=== PATIENT | male | born 1950 | race Caucasian/White ===

== ENCOUNTER 2022-11-11 12:31 | Outpatient (CLI) | payer MEDICARE, OTHER, SELFPAY ==
--- NOTE | ~2022-11-11 | PE_ITS ---
EXAMINATION: PET_PETPSMAST_PT DATE: 11/11/2022 14:48 INDICATION: Prostate cancer TECHNIQUE: 9.652 mCi of pipflufolastat F-18 (18-F-DCFPyL) was administered i.v. Low dose computed to mography (CT) images were acquired from the base of the brain to the base of the brain to the proxima l thighs for attenuation correction and anatomic localization. Positron emission tomography (PET) lamin ges were acquired in the same distribution beginning 93 minutes after injection. Images including fus ed PET/CT images were reconstructed in axial, coronal, and sagittal planes. Automated exposure contro l technique was employed. The dose-length product was 624.62mGy-cm. COMPARISON: None FINDINGS: Head/neck: Typical pattern of symmetric physiologic increased activity in the lacrimal, parotid and submandibula r glands as well as along the mucosa of the oropharynx, nasopharynx and hypopharynx. No pathologicall y enlarged cervical lymphadenopathy or suspicious foci of increased uptake in the visualized head or neck. Chest: Mild bibasilar atelectasis. No pneumonia, pulmonary edema or pleural effusion. Heart size is normal. Atherosclerotic coronary artery calcification. No pericardial effusion. Calcified left hilar and medi astinal lymph nodes consistent with old granulomatous disease. No pathologically enlarged or PSMA av id thoracic lymphadenopathy. Abdomen/pelvis/proximal thighs: Physiologic renal accumulation and excretion of activity in the kidneys, bladder and along portions o f ureters. Normal degree and slightly heterogenous pattern of increased uptake throughout the liver a nd spleen without radiologic correlate or dominant PSMA avid lesion. The gallbladder, pancreas and bi lateral adrenal glands are normal. Scattered uptake throughout the bowels with typical marked duodena l and proximal jejunal predominance and without radiologic correlate, also likely physiologic. Small focus of prominent asymmetric uptake at the left side of the prostate with maximal SUV of 16.1 likely representing the primary site of a reported known prostate cancer. No other abnormal foci of increas ed uptake or pathologically enlarged lymphadenopathy in the abdomen, pelvis or proximal thighs. Musculoskeletal: No abnormal increased uptake associated with a 7 mm relatively densely sclerotic lesion at the right posterior iliac spine most likely representing a small bone island. A couple tiny foci of mild activi ty without evident corresponding sclerotic bone lesions located in the region of several of the neura l foramina in the lumbar spine and sacrum likely associated with the dorsal root ganglia. No other tom spicious lytic, blastic or some avid bone lesions. IMPRESSION: 1. Prominent asymmetric increased uptake in the left prostate consistent with progressive primary pro state cancer. No other lesions suspicious for metastatic disease. Reviewed, dictated and finalized at location B. ATTACHER IMPRESSION: 1. Prominent asymmetric increased uptake in the left prostate consistent with p rogressive primary prostate cancer. No other lesions suspicious for metastatic disease.
== END 2022-11-11 12:32 | disposition home or self-care (01) ==
PROVIDERS: Visit Provider Urology
DX: C61 Malignant neoplasm of prostate (principal)
CPT/HCPCS: 78815; A9595

== ENCOUNTER 2022-12-20 13:51 | Outpatient (CLI) | payer MEDICARE, OTHER, SELFPAY ==
--- NOTE | ~2022-12-20 | XR_ITS ---
EXAMINATION: XR chest 2V DATE: 12/20/2022 15:34 INDICATION: Malignant neoplasm of prostate. TECHNIQUE: Frontal and lateral views of the chest were obtained. COMPARISON: PET/CT 11/11/2022 FINDINGS: Calcified left lung nodules and calcified left hilar lymph nodes are consistent with old gr anulomatous disease. No pleural effusion or pneumothorax. The heart size is normal. There are changes of anterior fusion procedure in cervical spine. IMPRESSION: 1. No acute cardiopulmonary disease. Reviewed, dictated and finalized at location A. DESTRUCTIVE EVALUATION SPECIALIST
--- NOTE | 2022-12-20 14:58 | ECG_ITS ---
Measurements Intervals [place] Rate: 68 P: 41 NE: 119 QRS: 23 QRSD: 102 T: 39 QT: 361 QTc: 384 Interpretive Statements SINUS RHYTHM WITH SHORT NE INTERVAL BASELINE ARTIFACT- I, II, III, AVR, AVL, AVF, V1-V6 BORDERLINE ECG NO PREVIOUS ECG AVAILABLE FOR COMPARISON Electronically Signed On 12-20-2022 16:34:16 JUNIOR TECHNICAL WRITER by Navneet Goldman D.O.
[2022-12-20 15:24] LABS: Basophils Percent Auto 0.4 % (0.2-1.2); Eosinophils Absolute Auto 0.1 K/mm3 (0-0.3); Hematocrit 48.6 % (42.0-52.0); Hemoglobin 16.4 g/dL (14.0-18.0); Immature Granulocyte Absolute 0.01 K/mm3 (0.00-0.031); Immature Granulocyte Percent A 0.1 % (0-0.5); Lymphocytes Absolute Auto 1.24 K/mm3 (0.9-3.2); Mean Corpuscular HGB Conc 33.7 g/dl (32-36); Mean Corpuscular Hemoglobin 31.7 pg (26-34); Mean Corpuscular Volume 93.8 fl (80-100); Mean Platelet Volume 8.5 fl (7.4-10.4); Monocytes Absolute Auto 0.7 K/mm3 (0.1-0.6); Monocytes Percent Auto 9.9 % (2.6-8.5); Neutrophils Absolute Auto 4.9 K/mm3 (1.3-6.7); Neutrophils Percent Auto 70.6 % (45.5-73.1); Platelet Count Result 228 k/mm3 (150-375); Red Blood Count 5.18 M/mm3 (4.6-6.20); Red Cell Distribution Width 12.4 % (11.5-14.5); White Blood Count 6.9 K/mm3 (4.5-10.0)
[2022-12-20 15:24] LABS: Appearance Urine Clear (Clear); Bilirubin Urine Negative (Negative); Blood Urine Negative (Negative); Color Urine Yellow (Yellow); Glucose Urine UA Negative (Negative); Ketones Urine Negative (Negative); Leukocyte Esterase Ur Negative LEU/UL (Negative); Nitrate Urine Negative (Negative); Protein Urine Negative (Negative); Urobilinogen Urine 0.2 mg/dL (<2.0)
[2022-12-20 15:35] LABS: Alanine Aminotransferase 30 U/L (6-50); Albumin Level 4.6 g/dL (3.5-5.1); Alkaline Phosphatase 68 U/L (38-126); Anion Gap 5 mmol/L (8-16); Aspartate Amino Transferase 32 U/L (17-59); Bilirubin,Total 0.5 mg/dL (0.2-1.3); Blood Urea Nitrogen 12 mg/dL (9-20); Calcium 9.2 mg/dL (8.4-10.2); Carbon Dioxide 33 mmol/L (22-30); Chloride 103 mmol/L (98-107); Estimated Glomerular Filt Rate > 60; Glucose 105 mg/dL (65-110); INR 1.1; Potassium 4.6 mmol/L (3.4-5.0); Prothrombin Time 13.5 Seconds (11.1-14.7); Sodium 141 mmol/L (137-145)
[2022-12-20 15:36] LABS: Partial Thromboplastin Time 27.9 SECONDS (22.3-36.8)
[2022-12-20 15:39] LABS: Add Urine Microscopic? NO
== END 2022-12-20 13:52 | disposition home or self-care (01) ==
PROVIDERS: Visit Provider Urology
DX: C61 Malignant neoplasm of prostate (principal); Z01.818 Encounter for other preprocedural examination; R94.31 Abnormal electrocardiogram [ECG] [EKG]
CPT/HCPCS: 36415; 71046; 80053; 81003; 85025; 85610; 85730; 86850; 86900; 86901; 93005

== ENCOUNTER 2022-12-29 00:53 | Day surgery (SDC) | payer MEDICARE, OTHER, SELFPAY ==
[2022-12-20 14:14] VITALS: BP 124/74; PULSE 74; RESP 16; TEMP 36.5; O2SAT 93; BMI 26.2
--- NOTE | 2022-12-20 14:31 | PC.NURSE ---
Addendum entered by Hayley Sullivan RN 12/20/22 15:04: PT RELAYS GOOD UNDERSTANDING OF BOWEL PREP DAY BEFORE SURGERY AND OF LOVENOX ADMINISTRATION. Original Note: Report to the Outpatient Waiting Room, entrance under the green pavilion located off [facility], at time __6:00AM on date ___12/29/22____. Planned Procedure Time: __7:30AM . Time changes happen often and if your time is changed the preop area will call you the afternoon before. - You and your visitor will be asked to self-screen and do not enter if you have any COVID symptoms. - Only one visitor is requested with a max of two and NO children visitors are allowed at this time. - The patient visitor may be requested to leave or wait in car when not with patient due to distancing restrictions. - A mask is optional within the hospital at this time. Patients may have clear liquids (water, carbonated beverages, clear teas, apple juice) until 3 hours prior to surgery with a maximum of 20 ounces. - No food from midnight until time of surgery Take the following medications with a SIP of water the morning of surgery: ___DIAZEPAM, METOPROLOL, TRAMADOL DO NOT STOP ANY OF YOUR OTHER PRESCRIPTION MEDICATIONS PRIOR TO SURGERY ?EXCEPT THE FOLLOWING Medications to discontinue per physician ___HOLD PLAVIX 4 DAYS PRE-OP- LAST DOSE 12/24/22---START LOVENOX INJECTIONS X2/DAY Monday12/25/22. HOLD ALL VITAMINS/SUPPLEMENTS 7 DAYS PRE-OP- LAST DOSE 12/22/22. Please no make-up, nail sri lankan, hairspray, perfume, deodorant, or body powder the day of surgery. No jewelry (including any body piercings) or valuables the day of surgery, leave them at home. Please take a shower or bath the night before, or the morning of, surgery with an antibacterial soap. Wear comfortable, loose fitting clothing. Children are encouraged to wear pajamas. - Jewelry must be removed prior to entering the operating room. Rings and piercings that are not removed may be cut off. - The hospital will not accept responsibility for valuables. - Please leave all valuables, including medications, at home the day of surgery. If you are going home after surgery, a licensed armor reconnaissance vehicle driver must drive you home. - NO public transportation without another adult if you receive anesthesia. - We recommend that an adult stay with you for 24 hours following discharge. - We also recommend that you do not drive, make important decision, drink alcoholic beverages, or take any drugs that were not prescribed by your health care provider for at least 24 hours after your discharge time. Follow any additional instructions given to you from your surgeon. If you or anyone in your household have experienced Covid symptoms in the past week, please notify your surgeon or the nurse liaison at the phone number below for possible testing. Telephone instructions given to ___PATIENT and asked if any additional questions and then verbalized understanding. Patient advised to call surgeon office or pre surgery nurse liaison [phone] if any additional questions.
--- NOTE | 2022-12-21 07:28 | PM.IMHP ---
H&P: HPI History of Present Illness Date/Time: 12/21/22 07:28 Chief Complaint: High-risk prostate cancer Narrative: Pleasant 72-year-old gentleman recently referred with a PSA of 9.8. Prostate ultrasound and biopsy demonstrated 12 of 12 cores with Tiff grade 2 3 4 and 5 adenocarcinoma. Staging PSMA PET scan revealed uptake only in the prostate without evidence of metastatic disease. High-risk CaP with unremarkable PSMA. ?Patient is not sexually active. ?He is resolved to proceeding with a robotic prostatectomy with bilateral pelvic lymph the vasectomy. ?He is aware of the risk including, but not limited to, adverse cardiopulmonary events, erectile dysfunciton and urinary incontinence. ?He has had a prior FL with stopping Plavix so will need to be on a Lovenox bridge. Patient is also aware of the potential need for adjuvant therapy postoperatively. Review of Systems Cardiovascular: Cardiovascular: Denies chest pain, Denies lightheadedness, Denies palpitations and Denies dyspnea Respiratory: Respiratory: Denies dyspnea Gastrointestinal: Gastrointestinal: Denies diarrhea, Denies nausea and Denies vomiting Genitourinary: Genitourinary: Denies hematuria and Denies dysuria Endocrine: Endocrine: Denies palpitations PMF Social History Social History Smoking status: Never smoker Alcohol intake: never Substance use: never Living arrangements: with family Additional living arrangements comments: Spiritual care concerns: No Meds Home Medications and Allergies Home Medications Medication Instructions Recorded Confirmed Type cetirizine 10 mg capsule (Zyrtec) 10 mg PO DAILY 12/20/22 12/20/22 History clopidogrel 75 mg tablet (Plavix) 75 mg PO DAILY 12/20/22 12/20/22 History diazepam 2 mg tablet 2 mg PO TID 12/20/22 12/20/22 History dutasteride 0.5 mg capsule 0.5 mg PO HS 12/20/22 12/20/22 History enoxaparin 80 mg/0.8 mL 80 mg subcut BID 12/20/22 12/20/22 History subcutaneous syringe famotidine 20 mg tablet 20 mg PO BID 12/20/22 12/20/22 History geriatric multivitamin-min 1 tablet PO DAILY 12/20/22 12/20/22 History lactobacillus comb no.10 20 20,000 mmu cells PO DAILY 12/20/22 12/20/22 History billion cell capsule (Probiotic) metoprolol succinate 25 mg 25 mg PO QAM 12/20/22 12/20/22 History tablet,extended release 24 hr multivitamin 1 tablet PO DAILY 12/20/22 12/20/22 History rosuvastatin 20 mg tablet 20 mg PO DAILY 12/20/22 12/20/22 History tramadol 50 mg tablet 50 mg PO BID 12/20/22 12/20/22 History Allergies Allergy/AdvReac Type Severity Reaction Status Date / Time No Known Allergies Allergy Verified 12/20/22 14:02 Vital Signs Vital Signs - 24 hr 12/20/22 14:14 Temperature 97.7 F Pulse Rate 74 Respiratory Rate 16 Blood Pressure 124/74 Pulse Oximetry 93 Oxygen Delivery Room Air Exam Const: General: no acute distress Resp: Effort & Inspection: normal respiratory effort GI: Inspection: non-distended GI Palp: No abdominal tenderness and No Guarding due to palpation present (GI) Auscultation: normal bowel sounds Assessment and Plan Assessment and plan (1) Prostate cancer: Code(s): C61 - Malignant neoplasm of prostate Status: Acute Assessment and Plan: Robotic assisted laparoscopic prostatectomy with bilateral pelvic lymphadenectomy
[2022-12-29] VITALS (12 sets, daily range): BP systolic 102–128; BP diastolic 52–63; PULSE 80–99; RESP 14–20; TEMP 36.2–37; O2SAT 94–100
--- NOTE | 2022-12-29 06:40 | WPDHPUPDATE1 ---
History and Physical Update Update Date/Time: 12/29/22 06:40 History and Physical has been reviewed, including an updated exam of the patient. There are NO changes in the patient's condition. Risks, benefits, and alternatives have been discussed and questions answered. Patient agrees to proceed with procedure.
--- NOTE | 2022-12-29 06:41 | WPDHPUPDATE1 ---
History and Physical Update Update Date/Time: 12/29/22 06:41 History and Physical has been reviewed, including an updated exam of the patient. There are NO changes in the patient's condition. Risks, benefits, and alternatives have been discussed and questions answered. Patient agrees to proceed with procedure.
[2022-12-29] MEDS: LACTATED RINGERS 1,000 ML 30 ML IV CONT ×2 (06:49→10:33)
--- NOTE | 2022-12-29 07:12 | WPDANESEPPF ---
Anes - Initial Pre Proc Eval Procedure: Operation Date: 12/29/22 07:30 Proposed Procedures p Robotic Assisted Laparoscopic Prostatectomy with Bilateral Pelvic Lymph Node Dissection - Linus Maria MD Date/Time: 12/29/22 07:12 Surgeon: Linus Maria MD Pre Op Diagnosis: prostate CA Patient Data Age: 72 Gender: M Height: 1.7 m Weight: 74 kg Last Vital Signs Temp 36.5 C 12/20/22 14:14 Pulse 74 12/20/22 14:14 Resp 16 12/20/22 14:14 BP 124/74 12/20/22 14:14 Pulse Ox 93 12/20/22 14:14 O2 Del Method Room Air 12/20/22 14:14 Allergies Allergy/AdvReac Type Severity Reaction Status Date / Time No Known Allergies Allergy Verified 12/29/22 07:04 Home Medications Medication Instructions Recorded Confirmed Type cetirizine 10 mg capsule (Zyrtec) 10 mg PO DAILY 12/20/22 12/20/22 History clopidogrel 75 mg tablet (Plavix) 75 mg PO DAILY 12/20/22 12/20/22 History diazepam 2 mg tablet 2 mg PO TID 12/20/22 12/20/22 History dutasteride 0.5 mg capsule 0.5 mg PO HS 12/20/22 12/20/22 History enoxaparin 80 mg/0.8 mL 80 mg subcut BID 12/20/22 12/20/22 History subcutaneous syringe famotidine 20 mg tablet 20 mg PO BID 12/20/22 12/20/22 History geriatric multivitamin-min 1 tablet PO DAILY 12/20/22 12/20/22 History lactobacillus comb no.10 20 20,000 mmu cells PO DAILY 12/20/22 12/20/22 History billion cell capsule (Probiotic) metoprolol succinate 25 mg 25 mg PO QAM 12/20/22 12/20/22 History tablet,extended release 24 hr multivitamin 1 tablet PO DAILY 12/20/22 12/20/22 History rosuvastatin 20 mg tablet 20 mg PO DAILY 12/20/22 12/20/22 History tramadol 50 mg tablet 50 mg PO BID 12/20/22 12/20/22 History Patient hx anesthesia problems: other (hx of difficult intubation) Family hx anesthesia problems: none Results Review: All pre-operative results and documents have been reviewed as part of the pre-operative evaluation. [facility] Past Medical History Medical History (Updated 12/29/22 @ 07:13 by Maulik Pena MD) Myocardial infarct Surgical History Surgical History (Updated 12/29/22 @ 07:13 by Maulik Pena MD) History of coronary artery stent placement Social History Social History Smoking status: Never smoker Alcohol intake: never Substance use: never Living arrangements: with family Additional living arrangements comments: Spiritual care concerns: No Anes - Eval Final PreProcedure Day of Procedure 12/29/22 07:12 Patient weight: overweight Heart: regular rate and rhythm Lungs: clear to auscultation Airway: Mallampati scale class III and special considerations poor opening, poor extension and retrognathia Last oral intake: >/= 8 hours ASA classification: III Emergent: no Anesthetic plan: proceed Anesthesia type and monitoring: general ETT and standard monitoring Results Review: All pre-operative results and documents have been reviewed as part of the pre-operative evaluation. Informed Consent: The patient's anesthetic plan and its attendant risks including oral injury, difficult intubation, AL, and benefits were discussed with the patient/family/POA. Questions were solicited and answers provided to the satisfaction of the patient/family/POA.
--- NOTE | 2022-12-29 10:37 | W.PM.PROC2 ---
Procedure Note - Detailed Date of Procedure 12/29/22 Pre-op Diagnosis Prostate CA Post-op Diagnosis Same Procedure Performed Robotic assisted laparoscopic radical prostatectomy with bilateral pelvic lymphadenectomy Surgeon Linus Maria MD Anesthesia General Findings No gross evidence of extra-prostatic carcinoma. Description of Procedure The patient was brought to the operative suite, where he was prepped and draped in routine sterile fashion while in a dorsal lithotomy, deep Trendelenburg position. A supraumbilical 10 mm trocar was placed after insufflation of the abdomen with a Veress needle. Three robotic ports were then placed under direct vision. Two of these were placed in the right lower quadrant - 10 cm and 20 cm lateral to, and in line with, the umbilicus. A third robotic trocar was placed 10 cm to the left of the umbilicus, and 20 cm to the left of the umbilicus, a 12 mm standard laparoscopic trocar was placed to be used as an grants and contracts assistant port. Lastly, a 5 mm trocar was placed in the left upper quadrant midway between the umbilicus and the left robotic trocar. I capped insufflation pressure to 10mmHg. Attention was then turned to the prostatectomy. I opted for a posterior approach in this patient. An incision was made in the parietal peritoneum along the posterior bladder/posterior prostate about 2 cm above the reflection of the peritoneum over the anterior rectum. The seminal vesicles and vas deferens were immediately identified. Dissection is undertaken in a fashion so as to avoid electrocautery as much as possible, particularly near the tips of the seminal vesicles. Dissection was also carried out in the midline so as to avoid any encounters with the ureters. The vas deferens and the seminal vesicles were dissected in their entirety to the base of the prostate. The plane anterior to Denoviller's fascia, anterior to the rectum and posterior to the prostate was then developed. I then dropped the bladder by incising the anterior parietal peritoneum just lateral to the median umbilical ligaments bilaterally. The bladder was dropped from the anterior abdominal and pelvic wall. The endopelvic fascia was identified and incised bilaterally, allowing for dissection of the posterior-lateral aspect of the prostate. The puboprostatic ligaments were transected near their origin from the posterior pubic ramus. This posterior lateral dissection of the prostate is also undertaken in a fashion so as to avoid electrocautery as much as possible. The dorsal vein of the penis is then secured with an 0 -Vicryl ligature. Attention is then turned to the bladder neck. The anterior bladder neck is incised at the vesico-prostatic junction. The previously placed urethral catheter was drawn through the urethrotomy. A very small bladder neck was maintained throughout the remainder of this dissection. The posterior bladder neck was incised in a fashion so as to avoid any injury to the ureteral orifices. Again, the small aperture of the bladder neck was maintained. The previously dissected vas deferens and the seminal vesicles were brought through the posterior bladder neck incision. The lateral prostatic pedicles were then carefully dissected from the lateral aspect of the prostate bilaterally. The prostatic pedicles were secured with Weck clips and transected. The neurovascular bundles were carefully dissected from the posterior-lateral aspect of the prostate. The dorsal vein of the penis was incised with electrocautery. Using cold scissors, the urethra was incised. After withdrawing the previously placed urethral catheter, the posterior urethra was sharply incised, as was the rectalurethralis muscle. Attention was then turned to an extended bilateral pelvic lymphadenectomy. The limits of this dissection were similar bilaterally. Specifically, the limits were the bifurcation of the common iliac vein proximally, the inguinal ligament distally, the obtur
[2022-12-29] MEDS: fentaNYL CITRATE INJ (*CRX) 100 MCG/2 ML VIAL 25 MCG IV PUSH (12:23)
[2022-12-29] MEDS: FAMOTIDINE 20 MG TABLET PO (17:16)
[2022-12-29] MEDS: HYOSCYAMINE SULFATE 0.125 MG TABLET SUBLINGUAL ×2 (17:18→20:07)
[2022-12-29] MEDS: ENOXAPARIN 80 MG/0.8 ML SYRINGE SUB-Q (20:01)
[2022-12-29] MEDS: KETOROLAC 15 MG/ML VIAL (*BKC) IV PUSH (20:07)
[2022-12-30 00:44] VITALS: BP 105/51; PULSE 96; RESP 18; TEMP 36.4; O2SAT 94
[2022-12-30 04:00] VITALS: BP 131/85; PULSE 58; RESP 18; TEMP 36.1; O2SAT 100
[2022-12-30] MEDS: HYOSCYAMINE SULFATE 0.125 MG TABLET SUBLINGUAL (04:22)
[2022-12-30] MEDS: KETOROLAC 15 MG/ML VIAL (*BKC) IV PUSH (04:54)
[2022-12-30 07:01] LABS: Hematocrit 37.1 % (42.0-52.0); Hemoglobin 12.3 g/dL (14.0-18.0)
[2022-12-30 07:19] LABS: Anion Gap 4 mmol/L (8-16); Blood Urea Nitrogen 14 mg/dL (9-20); Calcium 8.4 mg/dL (8.4-10.2); Carbon Dioxide 28 mmol/L (22-30); Chloride 101 mmol/L (98-107); Estimated CRCL calculation 55 ml/min; Estimated Glomerular Filt Rate > 60; Glucose 130 mg/dL (65-110); Potassium 3.9 mmol/L (3.4-5.0); Sodium 133 mmol/L (137-145)
--- NOTE | 2022-12-30 07:40 | WPDUROPN2 ---
Progress Note: A&P Assessment and Plan (1) Prostate cancer: Code(s): C61 - Malignant neoplasm of prostate Status: Acute Assessment and Plan: Doing well POD #1 Increase diet/ambulation Possibly home later today Subjective Subjective Date/Time Seen: 12/30/22 07:40 c/o urge to urinate and need to have a bowel movement. Tolerating diet Review of Systems Cardiovascular: Cardiovascular: Denies chest pain, Denies lightheadedness, Denies palpitations and Denies dyspnea Respiratory: Respiratory: Denies dyspnea Gastrointestinal: Gastrointestinal: Reports abdominal pain (mild), Denies diarrhea, Denies nausea and Denies vomiting Genitourinary: Genitourinary: Denies hematuria and Denies dysuria Endocrine: Endocrine: Denies palpitations Exam Const: General: no acute distress Resp: Effort & Inspection: normal respiratory effort GI: Inspection: non-distended and other (incisions clean and dry) GI Palp: No abdominal tenderness and No Guarding due to palpation present (GI) Auscultation: normal bowel sounds Urinary Catheter: Urinary Catheter: patent and draining and urine clear Objective Data Vital Signs Vital Signs: Vital Signs - 24 hr 12/29/22 10:33 12/29/22 10:45 12/29/22 11:00 Temperature 97.2 F L Pulse Rate 92 80 81 Respiratory Rate 17 20 15 Blood Pressure 128/52 L 115/61 116/59 L Pulse Oximetry 100 99 100 Oxygen Delivery Simple Face Mask Simple Face Mask Simple Face Mask Oxygen Flow Rate 10 10 10 12/29/22 11:15 12/29/22 11:30 12/29/22 11:45 Temperature Pulse Rate 80 84 86 Respiratory Rate 16 14 15 Blood Pressure 108/63 111/59 L 115/58 L Pulse Oximetry 99 99 99 Oxygen Delivery Simple Face Mask Simple Face Mask Simple Face Mask Oxygen Flow Rate 10 10 10 12/29/22 12:00 12/29/22 12:15 12/29/22 12:30 Temperature Pulse Rate 96 99 95 Respiratory Rate 16 18 19 Blood Pressure 109/61 102/59 L 107/60 Pulse Oximetry 99 94 94 Oxygen Delivery Room Air Room Air Room Air Oxygen Flow Rate 12/29/22 12:44 12/29/22 13:05 12/29/22 15:17 Temperature 97.8 F Pulse Rate 99 99 Respiratory Rate 16 16 Blood Pressure 120/59 L Pulse Oximetry 95 95 Oxygen Delivery Room Air Room Air Oxygen Flow Rate 12/29/22 16:44 12/30/22 00:44 Temperature 98.6 F 97.6 F Pulse Rate 89 96 Respiratory Rate 16 18 Blood Pressure 119/59 L 105/51 L Pulse Oximetry 95 94 Oxygen Delivery Oxygen Flow Rate Intake/Output Intake/Output: Intake & Output 12/27/22 12/28/22 12/29/22 12/30/22 23:59 23:59 23:59 23:59 Intake Total 1520 Output Total 1050 Balance 470 Meds/Results Medications: Active Medications Generic Name Dose Route Start Last Admin Trade Name Freq PRN Reason Stop Dose Admin Clopidogrel Bisulfate 75 mg 12/30/22 09:00 Clopidogrel Bisulfate 75 Mg Tablet PO QAM [facility] Diazepam 2 mg 12/29/22 13:00 12/30/22 06:05 Diazepam (*Crx) 2 Mg Tablet PO Not Given TID JORDEN Famotidine 20 mg 12/29/22 17:00 12/29/22 17:16 Famotidine 20 Mg Tablet PO 20 mg BID JORDEN Administration Fentanyl Citrate 25 mcg 12/29/22 07:53 12/29/22 12:23 Fentanyl Citrate Inj (*Crx) 100 Mcg/2 Ml Vial IV PUSH 25 mcg Q2M PRN Administration Pain Hyoscyamine 0.125 mg 12/29/22 10:58 12/30/22 04:22 Hyoscyamine Sulfate 0.125 Mg Tablet SUBLINGUAL 0.125 mg Q4H PRN Administration Bladder Spasm Lactated Ringer's 1,000 mls @ 30 mls/hr 12/29/22 06:40 12/29/22 10:33 Lr - Lactated Ringers Iv IV CONT Infused .Q24H JORDEN Infusion Lactated Ringer's 1,000 mls @ 30 mls/hr 12/29/22 07:55 12/29/22 12:32 Lr - Lactated Ringers Iv IV CONT Infused .Q24H JORDEN Infusion Lactated Ringer's 1,000 mls @ 125 mls/hr 12/29/22 11:00 Lr - Lactated Ringers Iv IV CONT .Q8H JORDEN Acetaminophen 1,000 mg in 100 mls @ 400 mls/hr 12/29/22 11:00 Ofirmev 1,000 Mg Ivpb IVPB 12/30/22 10:59 Q6H JORDEN Ketorolac Tromethamine
[2022-12-30 08:34] VITALS: PULSE 90
[2022-12-30] MEDS: CLOPIDOGREL BISULFATE 75 MG TABLET PO (08:34)
[2022-12-30] MEDS: METOPROLOL SUCCINATE EXT REL 25 MG TABCR PO (08:34)
[2022-12-30] MEDS: LORATADINE 10 MG TABLET PO (08:34)
[2022-12-30] MEDS: ROSUVASTATIN 10 MG TABLET 20 MG PO (08:34)
[2022-12-30] MEDS: FAMOTIDINE 20 MG TABLET PO (08:35)
[2022-12-30] MEDS: diazePAM (*CRX) 2 MG TABLET PO ×2 (08:35→12:00)
[2022-12-30] MEDS: levoFLOXacin 500 MG TABLET PO (08:38)
--- NOTE | 2022-12-30 09:33 | PC.NURSE ---
call placed to Dr. Maria pt stating he is urinating around the baxter cath, and is having gas pains. This nurse flushed baxter and flushes well. pain when pushing around on lower abd. new order from Dr. Maria for [place] 5-325 q4 hr PRN.
[2022-12-30] MEDS: HYDROcodone/acetaminophen (*CRX) 5-325 MG TABLET 1 TAB PO (09:36)
--- NOTE | 2022-12-30 13:38 | WPDANESPN ---
Anes - Prog Note Post-Op Date/Time: 12/30/22 13:38 Cardiovascular status: normal Respiratory status: normal Airway patency: baseline Mental status: baseline Post-Op hydration status: normal Vital Signs: Last Vital Signs Temp 96.9 F L 12/30/22 04:00 Pulse 90 12/30/22 08:34 Resp 18 12/30/22 04:00 BP 131/85 12/30/22 04:00 Pulse Ox 100 12/30/22 04:00 O2 Del Method Room Air 12/29/22 15:17 O2 Flow Rate 10 12/29/22 11:45 Pain Score (VAS): 0/10 I/O: Intake & Output 12/29/22 12/30/22 12/30/22 23:59 07:59 15:59 Intake Total 120 400 360 Output Total 1250 Balance 120 -850 360 Laboratory Tests 12/30/22 06:44 12/30/22 06:44 12/30/22 12/30/22 06:44 06:44 Hgb 12.3 L D Hct 37.1 L Sodium 133 L Potassium 3.9 Chloride 101 Carbon Dioxide 28 Anion Gap 4 L BUN 14 Creatinine 1.00 Estim Creat Clear Calc 55 Estimated GFR > 60 Glucose 130 H Calcium 8.4 Post-procedural complaints: none Patient Feedback: Patient satisfied with anesthetic care.
--- NOTE | 2022-12-30 16:10 | PM.DS ---
DS: Admitting Diagnosis Discharge Date 12/30/2020 Admitting Diagnosis Prostate cancer DS: Summary Hospital Course Hospital Course: This patient was admitted on the morning of his planned robotic prostatectomy. This procedure was uneventful, as was his postoperative course. By the evening of the procedure he was sitting at the bedside in tolerating a liquid diet. The following morning he was ambulating freely and tolerating regular food. His catheter drainage remained essentially clear throughout. His postoperative hemoglobin and serum creatinine were unremarkable. At the time of discharge he has been instructed in appropriate care for his Dunn catheter with both a leg bag and bedside bag. He will be discharged with plans to follow-up in 1 week with a cystogram. Time Spent with Patient Time attestation: Total time spent providing and/or coordinating discharge services: DS: Data Data Completed and Pending Pending studies at discharge: Pending at discharge 12/29/22 08:56 Surgical [PTH] Routine Surgical [PTH] Routine Surgical [PTH] Routine Labs on day of discharge: Labs from last 24 hours 12/30/22 12/30/22 06:44 06:44 Hgb 12.3 L D Hct 37.1 L Sodium 133 L Potassium 3.9 Chloride 101 Carbon Dioxide 28 Anion Gap 4 L BUN 14 Creatinine 1.00 Estim Creat Clear Calc 55 Estimated GFR > 60 Glucose 130 H Calcium 8.4 Discharge Plan Discharge Patient Disposition: Home, Self-Care Discharge Instructions: 1) Dunn catheter -> leg bag / bedside bag at night. 2) No lifting/straining >15lbs. x3 weeks. 3) No driving x1-week. 4) Resume normal, pre-operative diet. 5) My office will contact regarding follow-up in 1-week with cystogram. Stand Alone Forms: General Discharge Instructions Discharge Orders: Discharge Order (Routine); Ordered 12/30/22 Ordered By: Linus Maria Discharge Medications: New hydrocodone-acetaminophen 5-325 mg tablet 1 - 2 tablet PO Q6H PRN (Reason: pain) Qty: 24 0RF ciprofloxacin HCl 500 mg tablet 500 mg PO Q12H Qty: 10 0RF docusate sodium [Colace] 100 mg capsule 100 mg PO DAILY Qty: 30 0RF hyoscyamine sulfate 0.125 mg tablet 0.125 mg PO Q6H PRN (Reason: bladder spasms) Qty: 20 2RF Continued multivitamin Tablet 1 tablet PO DAILY clopidogrel [Plavix] 75 mg tablet 75 mg PO DAILY tramadol 50 mg tablet 50 mg PO BID famotidine 20 mg Tablet 20 mg PO BID diazepam 2 mg tablet 2 mg PO TID metoprolol succinate 25 mg tablet extended release 24 hr 25 mg PO QAM enoxaparin 80 mg/0.8 mL syringe 80 mg subcut BID Rx Instructions: START ONCE PLAVIX IS HELD -STARTING 4 DAYS PRE-OP dutasteride 0.5 mg capsule 0.5 mg PO HS rosuvastatin 20 mg tablet 20 mg PO DAILY Zyrtec 10 mg Capsule 10 mg PO DAILY Probiotic 20 billion cell Capsule 20,000 mmu cells PO DAILY Rx Instructions: administer with a meal Held geriatric multivitamin-min Tablet 1 tablet PO DAILY Hold Instructions: Resume on 01/04/23.
--- NOTE | 2022-12-30 19:40 | PM.DS ---
DS: Admitting Diagnosis Discharge Date 12/30/22 Admitting Diagnosis Prostate cancer DS: Discharge Diagnosis Discharge Diagnosis (1) Prostate cancer: Code(s): C61 - Malignant neoplasm of prostate Status: Acute DS: Summary Hospital Course Hospital Course: This patient was admitted on the morning of his planned robotic prostatectomy. This procedure was uneventful, as was his postoperative course. By the evening of the procedure he was sitting at the bedside in tolerating a liquid diet. The following morning he was ambulating freely and tolerating regular food. His catheter drainage remained essentially clear throughout. His postoperative hemoglobin and serum creatinine were unremarkable. At the time of discharge he has been instructed in appropriate care for his Dunn catheter with both a leg bag and bedside bag. He will be discharged with plans to follow-up in 1 week with a cystogram. Time Spent with Patient Time attestation: Total time spent providing and/or coordinating discharge services: Exam Const: General: no acute distress Resp: Effort & Inspection: normal respiratory effort GI: Inspection: non-distended GI Palp: No abdominal tenderness and No Guarding due to palpation present (GI) Auscultation: normal bowel sounds DS: Data Data Completed and Pending Pending studies at discharge: Pending at discharge 12/29/22 08:56 Surgical [PTH] Routine Surgical [PTH] Routine Surgical [PTH] Routine Labs on day of discharge: Labs from last 24 hours 12/30/22 12/30/22 06:44 06:44 Hgb 12.3 L D Hct 37.1 L Sodium 133 L Potassium 3.9 Chloride 101 Carbon Dioxide 28 Anion Gap 4 L BUN 14 Creatinine 1.00 Estim Creat Clear Calc 55 Estimated GFR > 60 Glucose 130 H Calcium 8.4 Discharge Plan Discharge Patient Disposition: Home, Self-Care Discharge Instructions: 1) Dunn catheter -> leg bag / bedside bag at night. 2) No lifting/straining >15lbs. x3 weeks. 3) No driving x1-week. 4) Resume normal, pre-operative diet. 5) My office will contact regarding follow-up in 1-week with cystogram. Stand Alone Forms: General Discharge Instructions Discharge Orders: Discharge Order (Routine); Ordered 12/30/22 Ordered By: Linus Maria Discharge Medications: New hydrocodone-acetaminophen 5-325 mg tablet 1 - 2 tablet PO Q6H PRN (Reason: pain) Qty: 24 0RF ciprofloxacin HCl 500 mg tablet 500 mg PO Q12H Qty: 10 0RF docusate sodium [Colace] 100 mg capsule 100 mg PO DAILY Qty: 30 0RF hyoscyamine sulfate 0.125 mg tablet 0.125 mg PO Q6H PRN (Reason: bladder spasms) Qty: 20 2RF Continued multivitamin Tablet 1 tablet PO DAILY clopidogrel [Plavix] 75 mg tablet 75 mg PO DAILY tramadol 50 mg tablet 50 mg PO BID famotidine 20 mg Tablet 20 mg PO BID diazepam 2 mg tablet 2 mg PO TID metoprolol succinate 25 mg tablet extended release 24 hr 25 mg PO QAM enoxaparin 80 mg/0.8 mL syringe 80 mg subcut BID Rx Instructions: START ONCE PLAVIX IS HELD -STARTING 4 DAYS PRE-OP dutasteride 0.5 mg capsule 0.5 mg PO HS rosuvastatin 20 mg tablet 20 mg PO DAILY Zyrtec 10 mg Capsule 10 mg PO DAILY Probiotic 20 billion cell Capsule 20,000 mmu cells PO DAILY Rx Instructions: administer with a meal Held geriatric multivitamin-min Tablet 1 tablet PO DAILY Hold Instructions: Resume on 01/04/23.
== END 2022-12-30 16:35 | disposition home or self-care (01) ==
LOC: ANHSURGERY 05:59 → ANH3MEDSUR 12:43
PROVIDERS: Visit Provider Urology
PROC: 0VT04ZZ Resection of Prostate, Percutaneous Endoscopic Approach (ICD-10-PCS; CPT 55867; principal; 2022-12-29 07:30)
DX: C61 Malignant neoplasm of prostate (principal); I25.2 Old myocardial infarction; Z95.5 Presence of coronary angioplasty implant and graft; Z79.02 Long term (current) use of antithrombotics/antiplatelets
CPT/HCPCS: 55866; 38571; S2900; 36415; 80048; 85014; 85018; 88305; 88309; A9270; J0330; J1100; J1170; J1650; J1885; J2250; J2405; J2704; J2710; J3010; J7030; J7120; Q9968

== ENCOUNTER 2023-01-06 12:52 | Outpatient (CLI) | payer MEDICARE, OTHER, SELFPAY ==
--- NOTE | ~2023-01-06 | XR_ITS ---
EXAMINATION: CYSTOGRAM DATE: 01/06/2023 13:40 INDICATION: Status post prostatectomy TECHNIQUE: Initial customer service professional radiograph of the pelvis was performed. There was retrograde administration of Omnipaque 350 mixed with saline contrast into patient's existing baxter catheter. Fluoroscopic lamin ges of the pelvis were obtained. A post-void image was also performed. Fluoroscopy exposure time was 1.0 minutes. A total of 16 fluoroscopic images and 12 overhead radiographs were obtained. Total DAP w as 20.586 Gycm^2 FINDINGS: A small leak on the left side of the region of the prostatic urethra. There is some leakage along the catheter which soaks material external to the patient. IMPRESSION: Small leak which appears to arise from the left side of the region of the prostatic urethra. Reviewed, dictated and finalized at location A. IMPRESSION: Small leak which appears to arise from the left side of the region of the prost atic urethra.
== END 2023-01-06 12:53 | disposition home or self-care (01) ==
PROVIDERS: Visit Provider Urology
DX: C61 Malignant neoplasm of prostate (principal)
CPT/HCPCS: 51600; 74430; Q9967

== ENCOUNTER 2023-02-28 13:42 | Emergency (ER) | payer MEDICARE, OTHER, SELFPAY ==
[2023-02-28 13:56] VITALS: BP 119/76; PULSE 95; RESP 16; TEMP 36.6; O2SAT 99
--- NOTE | 2023-02-28 14:00 | ED.EAR ---
HPI - Ear Problem General Chief complaint: Ear Stated complaint: CLOGGED EAR Time Seen by Provider: 02/28/23 14:06 Source: patient and RN notes reviewed Mode of arrival: ambulatory Limitations: no limitations History of Present Illness HPI Narrative: 73-year-old male presents with concern for clogged right ear. He denies pain. Reports it feels full and has had slightly decreased hearing. He denies any drainage from the ear. He reports history of having to have the ear cleaned out. MD Complaint: ear pain Related Data Home Medications Medication Instructions Recorded Confirmed cetirizine 10 mg capsule (Zyrtec) 10 mg PO DAILY 12/20/22 12/20/22 clopidogrel 75 mg tablet (Plavix) 75 mg PO DAILY 12/20/22 12/20/22 diazepam 2 mg tablet 2 mg PO TID 12/20/22 12/20/22 dutasteride 0.5 mg capsule 0.5 mg PO HS 12/20/22 12/20/22 enoxaparin 80 mg/0.8 mL 80 mg subcut BID 12/20/22 12/20/22 subcutaneous syringe famotidine 20 mg tablet 20 mg PO BID 12/20/22 12/20/22 geriatric multivitamin-min 1 tablet PO DAILY 12/20/22 12/20/22 lactobacillus comb no.10 20 20,000 mmu cells PO DAILY 12/20/22 12/20/22 billion cell capsule (Probiotic) metoprolol succinate 25 mg 25 mg PO QAM 12/20/22 12/20/22 tablet,extended release 24 hr multivitamin 1 tablet PO DAILY 12/20/22 12/20/22 rosuvastatin 20 mg tablet 20 mg PO DAILY 12/20/22 12/20/22 tramadol 50 mg tablet 50 mg PO BID 12/20/22 12/20/22 Allergies Allergy/AdvReac Type Severity Reaction Status Date / Time No Known Allergies Allergy Verified 12/29/22 07:04 Review of Systems Review of Systems: CONSTITUTIONAL: Denies malaise, chills, sweats, or fever. EYES: Denies visual changes, redness, or discharge. ENT: Denies rhinorrhea, congestion, sinus pain, and sore throat. Reports right ear fullness CARDIOVASCULAR: Denies chest pain, palpitations, or edema. RESPIRATORY: Denies cough. Denies dyspnea. GASTROINTESTINAL: Denies abdominal pain, nausea, vomiting, diarrhea SKIN: Denies rash or itching. MUSCULOSKELETAL: Denies myalgia. NEUROLOGIC: Denies headache. All systems reviewed & are unremarkable except as noted in HPI and below PMFSH Past Medical History Medical History (Updated 02/28/23 @ 14:20 by Deya Gray NP) Myocardial infarct Surgical History Surgical History (Updated 12/29/22 @ 07:13 by Maulik Pena MD) History of coronary artery stent placement Social History Social History Smoking status: Never smoker Alcohol intake: never Substance use: never Lack of Transportation: No Lack of Food: Never True Current Housing: I Have Housing Concerned About Future Housing: No Difficulty Paying Gas/Electric Bills: No Difficulty Paying for Meds: No Currently Unemployed: No Education: Bachelor's Degree Difficulty w/ Childcare or Family Care: No Living arrangements: with family Additional living arrangements comments: Spiritual care concerns: No Comments At time of signature, agree with nursing past medical, surgical, social and family history. There is no relevant family history pertinent to the presenting complaint Exam Narrative: GENERAL: Well-appearing, well-nourished, and in no acute distress. HEAD: Normocephalic EYES: PERRLA, conjunctivae clear ENT: Nares clear. Mucous membranes moist. TM not visible due to excess cerumen bilaterally; no tragal tenderness. NECK: Supple. No lymphadenopathy CHEST: No respiratory distress, speaks in full sentences. HEART: Regular rate and rhythm. No murmur heard. SKIN: Warm, dry, no rash. NEURO: Alert and oriented x3. PSYCH: Normal mood and affect Course Course Emergency Course: Patient is aware of diagnosis, understands and agrees to treatment plan. Anticipatory guidance given. Patient agrees to follow-up as directed and is aware of reasons to seek care at the emergency department. Portions of this record may have been created with amna
== END 2023-02-28 15:24 | disposition home or self-care (01) ==
PROVIDERS: Emergency Provider Nurse Practitioner
DX: H61.21 Impacted cerumen, right ear (principal); I25.2 Old myocardial infarction
CPT/HCPCS: 69210; 99212; G0463

== ENCOUNTER 2023-06-18 09:32 | Emergency (ER) | payer MEDICARE, OTHER, SELFPAY ==
[2023-06-18 09:45] VITALS: BP 129/87; PULSE 78; RESP 16; TEMP 36.4; O2SAT 100
--- NOTE | 2023-06-18 10:01 | ED.EAR ---
HPI - Ear Problem General Chief complaint: Ear Stated complaint: Right ear infection Time Seen by Provider: 06/18/23 10:13 Source: patient and RN notes reviewed Mode of arrival: ambulatory Limitations: no limitations History of Present Illness HPI Narrative: 73-year-old male presents concern for right ear pain, pressure, fullness, decreased hearing. Reports he tried to clean wax out of it with an [id number] drops and device that he got at the pharmacy. Reports it made it worse and cause more pain. He denies upper respiratory symptoms. MD Complaint: ear pain and decreased hearing Related Data Home Medications Medication Instructions Recorded Confirmed clopidogrel 75 mg tablet (Plavix) 75 mg PO DAILY 12/20/22 06/18/23 diazepam 2 mg tablet 2 mg PO TID 12/20/22 06/18/23 dutasteride 0.5 mg capsule 0.5 mg PO HS 12/20/22 06/18/23 famotidine 20 mg tablet 20 mg PO BID 12/20/22 06/18/23 lactobacillus comb no.10 20 20,000 mmu cells PO DAILY 12/20/22 06/18/23 billion cell capsule (Probiotic) metoprolol succinate 25 mg 25 mg PO QAM 12/20/22 06/18/23 tablet,extended release 24 hr multivitamin 1 tablet PO DAILY 12/20/22 06/18/23 rosuvastatin 20 mg tablet 20 mg PO DAILY 12/20/22 06/18/23 Allergies Allergy/AdvReac Type Severity Reaction Status Date / Time No Known Allergies Allergy Verified 06/18/23 10:11 Review of Systems Review of Systems: CONSTITUTIONAL: Denies malaise, chills, sweats, or fever. EYES: Denies visual changes, redness, or discharge. ENT: Denies rhinorrhea, congestion, sinus pain, and sore throat. Reports right ear pain a fullness, decreased hearing CARDIOVASCULAR: Denies chest pain, palpitations, or edema. RESPIRATORY: Denies cough. Denies dyspnea. GASTROINTESTINAL: Denies abdominal pain, nausea, vomiting, diarrhea SKIN: Denies rash or itching. MUSCULOSKELETAL: Denies myalgia. NEUROLOGIC: Denies headache. All systems reviewed & are unremarkable except as noted in HPI and below PMFSH Past Medical History Medical History (Updated 06/18/23 @ 10:23 by Deya Gray NP) Myocardial infarct Surgical History Surgical History (Updated 12/29/22 @ 07:13 by Maulik Pena MD) History of coronary artery stent placement Social History Social History Smoking status: Never smoker Alcohol intake: never Substance use: never Lack of Transportation: No Lack of Food: Never True Current Housing: I Have Housing Concerned About Future Housing: No Difficulty Paying Gas/Electric Bills: No Difficulty Paying for Meds: No Currently Unemployed: No Education: Bachelor's Degree Difficulty w/ Childcare or Family Care: No Living arrangements: with family Additional living arrangements comments: Spiritual care concerns: No Comments At time of signature, agree with nursing past medical, surgical, social and family history. There is no relevant family history pertinent to the presenting complaint Exam Narrative: GENERAL: Well-appearing, well-nourished, and in no acute distress. HEAD: Normocephalic EYES: PERRLA, conjunctivae clear ENT: Nares clear. Mucous membranes moist. Left TM not visible due to excess cerumen, right TM not visible due to some cerumen with PA see your edema, edema; right tragal tenderness, no purulent drainage. NECK: Supple. No lymphadenopathy CHEST: No respiratory distress, speaks in full sentences. HEART: Regular rate and rhythm. No murmur heard. SKIN: Warm, dry, no rash. NEURO: Alert and oriented x3. PSYCH: Normal mood and affect Course Course Emergency Course: Patient is aware of diagnosis, understands and agrees to treatment plan. Anticipatory guidance given. Patient agrees to follow-up as directed and is aware of reasons to seek care at the emergency department. Portions of this record may have been created with voice recognition software Level of Care: Express Care Visit Vital Sign
== END 2023-06-18 10:29 | disposition home or self-care (01) ==
PROVIDERS: Emergency Provider Nurse Practitioner
DX: H60.91 Unspecified otitis externa, right ear (principal)
CPT/HCPCS: 99211; G0463

== ENCOUNTER 2023-07-10 13:14 | Emergency (ER) | payer MEDICARE, OTHER, SELFPAY ==
[2023-07-10 13:21] VITALS: BP 122/74; PULSE 92; RESP 16; TEMP 36.3; O2SAT 100
[2023-07-10 13:29] VITALS: BP 122/74; PULSE 92; RESP 16; TEMP 36.3; O2SAT 100
--- NOTE | 2023-07-10 13:39 | ED.EAR ---
HPI - Ear Problem General Chief complaint: Ear Stated complaint: Ears clogged Time Seen by Provider: 07/10/23 13:30 Source: patient Mode of arrival: ambulatory Limitations: no limitations History of Present Illness HPI Narrative: Patient is a 73-year-old female that presents with bilateral ear fullness. Was diagnosed with otitis externa 06/18. Patient states he has history of cerumen impactions. Denies any congestion, cough, fever, chills. Denies any use of Q-tips or hearing aids. MD Complaint: ear pain Related Data Home Medications Medication Instructions Recorded Confirmed clopidogrel 75 mg tablet (Plavix) 75 mg PO DAILY 12/20/22 07/10/23 diazepam 2 mg tablet 2 mg PO TID 12/20/22 07/10/23 lactobacillus comb no.10 20 20,000 mmu cells PO DAILY 12/20/22 07/10/23 billion cell capsule (Probiotic) metoprolol succinate 25 mg 25 mg PO QAM 12/20/22 07/10/23 tablet,extended release 24 hr multivitamin 1 tablet PO DAILY 12/20/22 07/10/23 rosuvastatin 20 mg tablet 20 mg PO DAILY 12/20/22 07/10/23 Allergies Allergy/AdvReac Type Severity Reaction Status Date / Time No Known Allergies Allergy Verified 07/10/23 13:25 Review of Systems Review of Systems: All systems reviewed & are unremarkable except as noted in HPI and below Constitutional: Constitutional: Denies body ache(s), Denies chills, Denies fever(s), Denies headache(s) and Denies malaise Eyes: Eyes: Denies blurry vision, Denies eye discharge and Denies irritation ENT: Reports otalgia, Denies headache(s), Reports hearing loss, Denies nasal congestion, Denies nasal discharge and Denies sore throat Cardiovascular: Cardiovascular: Denies chest pain, Denies edema, Denies palpitations and Denies dyspnea on exertion Respiratory: Respiratory: Denies cough and Denies dyspnea on exertion Gastrointestinal: Gastrointestinal: Denies abdominal pain, Denies diarrhea, Denies nausea and Denies vomiting Musculoskeletal: Musculoskeletal: Denies back pain, Denies arthralgias and Denies muscle weakness Integumentary/Breasts: Skin/Breast: Denies pruritus and Denies rash Neurologic: Denies headache(s) Psychiatric: Psychiatric: Reports no additional psychiatric complaints Endocrine: Endocrine: Denies palpitations PMFSH Past Medical History Medical History Myocardial infarct Surgical History Surgical History History of coronary artery stent placement Social History Social History Smoking status: Never smoker Alcohol intake: never Substance use: never Lack of Transportation: No Lack of Food: Never True Current Housing: I Have Housing Concerned About Future Housing: No Difficulty Paying Gas/Electric Bills: No Difficulty Paying for Meds: No Currently Unemployed: No Education: Bachelor's Degree Difficulty w/ Childcare or Family Care: No Living arrangements: with family Additional living arrangements comments: Spiritual care concerns: No Comments At time of signature, agree with nursing past medical, surgical, social and family history. There is no relevant family history pertinent to the presenting complaint? Exam Const: General: cooperative, healthy appearing, no acute distress and well nourished Nutritional Appearance: well nourished Orientation/consciousness: patient oriented x3 Limitations: no limitations HENMT: Head: normal to inspection, normocephalic and atraumatic Ears: hearing grossly normal bilaterally, EAC's normal, no periauricular adenopathy and TM abnormal obstructed by cerumen bilateral Face/Nose/Sinus: Normal external nose present, Normal nares present, Normal nasal mucous membranes and turbinates present, No nasal discharge present, normal facial exam and sinuses nontender Face and sinus: normal facial exam and sinuses nontender Mouth: Yes Normal oral
== END 2023-07-10 14:23 | disposition home or self-care (01) ==
PROVIDERS: Emergency Provider Nurse Practitioner Family
DX: H61.23 Impacted cerumen, bilateral (principal); I25.2 Old myocardial infarction; Z79.899 Other long term (current) drug therapy
CPT/HCPCS: 69209; 99212; A9270; G0463

== ENCOUNTER 2024-01-11 11:46 | Outpatient (CLI) | payer MEDICARE, OTHER, SELFPAY ==
--- NOTE | ~2024-01-11 | PE_ITS ---
EXAMINATION: PET_PETPSMAST_PT DATE: 01/11/2024 13:53 INDICATION: Prostate cancer. TECHNIQUE: 4.404 mCi of Ga 68 gozetotide was administered intravenously. Low dose computed tomography (CT) images were acquired from the base of the brain to the proximal thighs for attenuation correcti on and anatomic localization. Automated exposure control was employed. Dose-length product (DLP) was 913 mGy-cm. Positron emission tomography (PET) images were acquired in the same distribution. COMPARISON: PET/CT 11/11/2022 FINDINGS: Head/neck: There are likely changes of ocular lens replacement surgeries. There are no pathologically enlarged lymph nodes. There are changes of anterior fusion procedure in cervical spine. Chest: The lungs demonstrate mild atelectasis. Calcified left lung nodules and calcified left hilar a nd mediastinal lymph nodes are consistent with old granulomatous disease. No pleural effusion. The he art size is normal. There are coronary artery calcifications. No pericardial effusion. Abdomen/pelvis/proximal thighs: The liver, gallbladder, spleen, pancreas, adrenal glands, and left ki dney are normal. There is a 12 mm cyst in right kidney. There is diverticulosis of the colon without evidence of diverticulitis. There are no dilated loops of bowel. The appendix is normal. There is jeff cified atherosclerosis of the aorta and many of the other arteries. There are changes of prostatectom y. There is a benign bone island in right ilium. IMPRESSION: 1. No evidence of metastatic disease. Reviewed, dictated and finalized at location A.
== END 2024-01-11 11:47 | disposition home or self-care (01) ==
PROVIDERS: Visit Provider Urology
DX: C61 Malignant neoplasm of prostate (principal)
CPT/HCPCS: 78815; A9596

== ENCOUNTER 2024-03-24 09:00 | Emergency (ER) | payer MEDICARE, OTHER, SELFPAY ==
--- NOTE | 2024-03-24 09:02 | ED.EAR ---
HPI - Ear Problem General Chief complaint: Ear Stated complaint: Ear Pain Time Seen by Provider: 03/24/24 09:02 Source: patient Mode of arrival: ambulatory Limitations: no limitations History of Present Illness HPI Narrative: Nguyễn is a 74-year-old male patient presenting to the clinic today with complaints right ear feeling clogged and unable to hear at the right ear. Thinks he has a cerumen impaction in the right ear. States he attempted to make it better with his finger and made the impaction worse. Does have some slight discomfort and he is concerned that he may have a ear infection. Symptoms have been going on for few days. Related Data Home Medications Medication Instructions Recorded Confirmed clopidogrel 75 mg tablet (Plavix) 75 mg PO DAILY 12/20/22 03/24/24 diazepam 2 mg tablet 2 mg PO TID 12/20/22 03/24/24 lactobacillus comb no.10 20 20,000 mmu cells PO DAILY 12/20/22 03/24/24 billion cell capsule (Probiotic) metoprolol succinate 25 mg 25 mg PO QAM 12/20/22 03/24/24 tablet,extended release 24 hr multivitamin 1 tablet PO DAILY 12/20/22 03/24/24 rosuvastatin 20 mg tablet 20 mg PO DAILY 12/20/22 03/24/24 potassium chloride 20 mEq 20 meq PO DAILY 03/24/24 03/24/24 tablet,extended release(part/cryst) tramadol 50 mg tablet 50 mg PO DIRECTED 03/24/24 03/24/24 Allergies Allergy/AdvReac Type Severity Reaction Status Date / Time No Known Allergies Allergy Verified 03/24/24 09:05 Review of Systems Review of Systems: Pertinent positives per HPI. Patient denies any fever, chills, rash, headache, visual changes, dizziness, cough, runny nose, sore throat, shortness of breath, chest pain, palpitations, nausea, vomiting, diarrhea, constipation, abdominal pain, or any urinary issues. [facility] Past Medical History Medical History Myocardial infarct Surgical History Surgical History History of coronary artery stent placement Social History Social History (Reviewed 03/24/24 @ 09:04 by LLUVIA Hartman Smoking status: Never smoker Alcohol intake: never Substance use: never Lack of Transportation: No Lack of Food: Never True Current Housing: I Have Housing Concerned About Future Housing: No Difficulty Paying Gas/Electric Bills: No Difficulty Paying for Meds: No Currently Unemployed: No Education: Bachelor's Degree Difficulty w/ Childcare or Family Care: No Living arrangements: with family Additional living arrangements comments: Spiritual care concerns: No Comments At the time of my signature, I reviewed and agree with the nursing past medical, surgical, social, and family history. There is no relevant family history pertinent to the patient complaint. Exam Narrative: General: Well-developed, well nourished, in no apparent distress Head: Normocephalic, atraumatic Eyes: Pupils equally round and reactive to light bilaterally, EOM intact, sclera and conjunctive clear, no discharge, lids normal Ears: Bilateral cerumen impaction, irrigation and lighted curetting was performed successfully, TMs intact and clear, ear canals clear, no drainage, grossly hearing normal. Nose: Nares patent, no discharge, no inflammation, no sinus tenderness. Mouth: Oropharynx without lesions or masses, good dentition, MMM. Neck: Supple, trachea midline, no enlargement of anterior or posterior cervical nodes, no thyroid masses or goiter palpable. Cardio: Regular rate and rhythm, s1 and s2 normal, no murmur appreciated. Resp: Clear to auscultation bilaterally anteriorly and posteriorly, no rhonchi, rales, wheezing or rubs Course Course Emergency Course: Portions of this record may have been created with voice recognition software. Level of Care: Express Care Visit Vital Signs Vital signs: Vital signs reviewed Procedures Ear Wax Removal Both Ears
[2024-03-24 09:08] VITALS: BP 141/77; PULSE 82; RESP 16; TEMP 36.3; O2SAT 98
[2024-03-24] MEDS: CARBAMIDE PEROXIDE 6.5% OT SOLN 15 ML BTL 5 DROP EACH EAR (09:18)
== END 2024-03-24 09:56 | disposition home or self-care (01) ==
PROVIDERS: Emergency Provider Nurse Practitioner Family
DX: H61.23 Impacted cerumen, bilateral (principal); I25.2 Old myocardial infarction; Z95.5 Presence of coronary angioplasty implant and graft
CPT/HCPCS: 69210; 99212; A9270; G0463

== ENCOUNTER 2024-06-25 08:53 | Emergency (ER) | payer MEDICARE, OTHER, SELFPAY ==
[2024-06-25 09:00] VITALS: BP 138/79; PULSE 87; RESP 16; TEMP 36.4; O2SAT 97
--- NOTE | 2024-06-25 09:05 | ED.EXTPRO ---
HPI - Extremity Problem General Chief complaint: Extremity Problem,Nontraumatic Stated complaint: Infected Finger Source: patient, RN notes reviewed and old records reviewed Mode of arrival: ambulatory Limitations: no limitations History of Present Illness HPI Narrative: patient presents with complaints of splinter to right thumb. He reports this happened yesterday while he was pulling weeds. There is associated redness, swelling, tenderness. Injury is at the cuticle. He denies other injury and trauma. Voices no other concerns or complaints today. Related Data Home Medications Medication Instructions Recorded Confirmed clopidogrel 75 mg tablet (Plavix) 75 mg PO DAILY 12/20/22 06/25/24 diazepam 2 mg tablet 2 mg PO TID 12/20/22 06/25/24 lactobacillus comb no.10 20 20,000 mmu cells PO DAILY 12/20/22 06/25/24 billion cell capsule (Probiotic) metoprolol succinate 25 mg 25 mg PO QAM 12/20/22 06/25/24 tablet,extended release 24 hr multivitamin 1 tablet PO DAILY 12/20/22 06/25/24 rosuvastatin 20 mg tablet 20 mg PO DAILY 12/20/22 06/25/24 potassium chloride 20 mEq 20 meq PO DAILY 03/24/24 06/25/24 tablet,extended release(part/cryst) tramadol 50 mg tablet 50 mg PO DIRECTED 03/24/24 06/25/24 famotidine 20 mg tablet 20 mg PO DAILY 06/25/24 06/25/24 Allergies Allergy/AdvReac Type Severity Reaction Status Date / Time No Known Allergies Allergy Verified 03/24/24 09:05 Review of Systems Review of Systems: All systems reviewed & are unremarkable except as noted in HPI and below Constitutional: Constitutional: Reports as per HPI and Reports no additional constitutional complaints ENT: Reports system reviewed and no additional complaints, except as documented Cardiovascular: Cardiovascular: Reports as per HPI and Reports no additional cardiovascular complaints Respiratory: Respiratory: Reports as per HPI and Reports no additional respiratory complaints Gastrointestinal: Gastrointestinal: Reports no additional gastrointestinal complaints Integumentary/Breasts: Skin/Breast: Reports system reviewed and no additional complaints, except as docu and Reports as per HPI Comments: Foreign body, left thumb PMFSH Past Medical History Medical History Myocardial infarct Surgical History Surgical History History of coronary artery stent placement Social History Social History Smoking status: Never smoker Alcohol intake: never Substance use: never Lack of Transportation: No Lack of Food: Never True Current Housing: I Have Housing Concerned About Future Housing: No Difficulty Paying Gas/Electric Bills: No Difficulty Paying for Meds: No Currently Unemployed: No Education: Bachelor's Degree Difficulty w/ Childcare or Family Care: No Living arrangements: with family Additional living arrangements comments: Spiritual care concerns: No Comments At the time of my signature, I reviewed and agree with the nursing past medical, surgical, social, and family history. There is no relevant family history pertinent to the patient complaint. Exam Const: General: cooperative, no acute distress, alert and awake Orientation/consciousness: oriented to person, oriented to place and oriented to time HENMT: Head: normal to inspection Resp: Effort & Inspection: normal respiratory effort and able to speak in complete sentences Auscultation: clear to auscultation bilaterally, no crackles, no rales, no rhonchi and no wheezes Cardio: Palpation: normal PMI Rate: regular rate Rhythm: regular rhythm Heart sounds: S1 normal heart sound present and S2 normal heart sound present Skin: General skin exam: other (Foreign body, splinter to right thumb. Associated redness and swelling) Neuro: General: oriented to person, oriented to pl
== END 2024-06-25 10:00 | disposition home or self-care (01) ==
LOC: EXPGOSH 08:56
PROVIDERS: Emergency Provider Nurse Practitioner Family
DX: M79.5 Residual foreign body in soft tissue (principal); L03.011 Cellulitis of right finger; I25.2 Old myocardial infarction; Z95.5 Presence of coronary angioplasty implant and graft
CPT/HCPCS: 99212; G0463

== ENCOUNTER 2024-08-29 07:30 | Outpatient (CLI) | payer MEDICARE, OTHER, SELFPAY ==
[2024-08-29 08:58] LABS: Cholesterol 134 mg/dL (0-200); HDL Direct 55 mg/dL; Triglycerides 97 mg/dL (<150)
[2024-08-29 09:09] LABS: LDL Cholesterol Direct 51 mg/dL
== END 2024-08-29 07:31 | disposition home or self-care (01) ==
PROVIDERS: Visit Provider Internal Medicine Interventional Cardiology
DX: E78.5 Hyperlipidemia, unspecified (principal)
CPT/HCPCS: 36415; 80061

== ENCOUNTER 2024-10-27 09:39 | Emergency (ER) | payer MEDICARE, OTHER, SELFPAY ==
--- NOTE | 2024-10-27 10:03 | ED_ITS ---
HPI - Ear Problem General Chief complaint: Ear Stated complaint: R EAR CLOGGED Time Seen by Provider: 10/27/24 10:03 Source: patient Mode of arrival: ambulatory Limitations: no limitations History of Present Illness HPI Narrative: 74-year-old male presents with complaint of clogged feeling with decreased hearing to right ear. All systems reviewed and negative except as noted above. Related Data Home Medications ?Medication ?Instructions ?Recorded ?Confirmed ?Last Taken ?Type clopidogrel 75 mg tablet (Plavix) 75 mg PO DAILY 12/20/22 10/27/24 Unknown History diazepam 2 mg tablet 2 mg PO TID 12/20/22 10/27/24 Unknown History lactobacillus comb no.10 20 20,000 mmu cells PO DAILY 12/20/22 10/27/24 Unknown History billion cell capsule (Probiotic) metoprolol succinate 25 mg 25 mg PO QAM 12/20/22 10/27/24 Unknown History tablet,extended release 24 hr multivitamin 1 tablet PO DAILY 12/20/22 10/27/24 Unknown History rosuvastatin 20 mg tablet 20 mg PO DAILY 12/20/22 10/27/24 Unknown History potassium chloride 20 mEq 20 meq PO DAILY 03/24/24 10/27/24 Unknown History tablet,extended release(part/cryst) tramadol 50 mg tablet 50 mg PO DIRECTED 03/24/24 10/27/24 Unknown History famotidine 20 mg tablet 20 mg PO DAILY 06/25/24 10/27/24 Unknown History Allergies Allergy/AdvReac Type Severity Reaction Status Date / Time No Known Allergies Allergy Verified 10/27/24 09:47 Review of Systems Review of Systems: CONSTITUTIONAL: Denies fever, chills, or sweats. EYES: Denies visual changes, redness, or discharge. ENT: Denies rhinorrhea, congestion, sore throat. Reports right ear is clogged with decreased hearing. CARDIOVASCULAR: Denies chest pain, palpitations, or edema. RESPIRATORY: Denies cough or dyspnea. GASTROINTESTINAL: Denies abdominal pain, nausea, vomiting, or diarrhea. GENITOURINARY: Denies dysuria or hematuria. SKIN: Denies rash or itching. MUSCULOSKELETAL: Denies back pain, joint pain, or myalgia. NEUROLOGIC: Denies headache, numbness, or weakness. PSYCHIATRIC: Denies anxiety or depression. All other systems reviewed are negative, except as documented in HPI. [facility] Past Medical History Medical History Myocardial infarct Surgical History Surgical History History of coronary artery stent placement Social History Social History Smoking status: Never smoker Alcohol intake: never Substance use: never Lack of Transportation: No Lack of Food: Never True Current Housing: I Have Housing Concerned About Future Housing: No Difficulty Paying Gas/Electric Bills: No Difficulty Paying for Meds: No Currently Unemployed: No Education: Bachelor's Degree Difficulty w/ Childcare or Family Care: No Living arrangements: with family Additional living arrangements comments: Spiritual care concerns: No Comments At time of signature, agree with nursing past medical, surgical, social and family history. There is no relevant family history pertinent to the presenting complaint. Exam Narrative: GENERAL: This is a well-nourished, well-developed patient, in no apparent distress. HEAD: normocephalic, atraumatic. EYES: PERRL. Sclera clear/white. Vision is grossly intact. EARS: External ears normal, left ear canal normal. Right ear canal impacted with cerumen. After irrigation bilateral TMs normal without perforation. Hearing grossly intact. NOSE: External nose normal NECK: Neck supple, non-tender without lymphadenopathy, masses or thyromegaly. CARDIOVASCULAR: Regular rate and rhythm without murmurs, gallops, or rubs. RESPIRATORY: Clear to auscultation. Breath sounds equal bilaterally. No wheezes, rales, or rhonchi. SKIN: warm, Dry, intact with no suspicious lesions or rash, good texture and turgor. NEURO: awake, alert, and oriented to person, place and time. There were no obvious focal neurologic abnormalities. EXTREMITIES: No joint tenderness, effusion, or edema noted. Course Course Level of Care: Express Care Visit Vital Signs Vital signs: Reviewed Procedures Ear Wax Removal Right Ear: Ear Wax Removal Date: 10/27/24 Cerumenolytic Used: other (Warm water) Results: Re-examined: cerumen removed completely TM Examination: TM(s) intact, normal appearance Ear Canal Exam: atraumatic Patient Tolerated Procedure: well Complications: no problems Technique: ear canal irrigated Medical Decision Making MDM Narrative Medical decision making narrative: Cerumen removed from right ear canal. Hearing improved per patient. Patient is aware of diagnosis, understands and agrees to treatment plan. Anticipatory guidance given. Patient agrees to follow-up as directed and is aware of reasons to seek care at the emergency department. Portions of this record may have been created with voice recognition software Discharge Plan Discharge Clinical Impression: Hearing loss of right ear due to cerumen impaction Patient Disposition: Home, Self-Care Condition: Stable Additional Instructions: Your right ear canal was irrigated today. Cerumen was removed and there are no signs of infection. Follow-up with your primary care physician as needed. Patient Language: Hungarian Prescriptions: No Action tramadol 50 mg tablet 50 mg PO DIRECTED potassium chloride 20 mEq tablet,ER particles/crystals 20 meq PO DAILY famotidine 20 mg Tablet 20 mg PO DAILY multivitamin Tablet 1 tablet PO DAILY clopidogrel [Plavix] 75 mg tablet 75 mg PO DAILY diazepam 2 mg tablet 2 mg PO TID metoprolol succinate 25 mg tablet extended release 24 hr 25 mg PO QAM rosuvastatin 20 mg tablet 20 mg PO DAILY Probiotic 20 billion cell Capsule 20,000 mmu cells PO DAILY Rx Instructions: administer with a meal Follow-up/Referrals: Davian,Cameron [Other] Time of Disposition: 10:12
== END 2024-10-27 10:18 | disposition home or self-care (01) ==
PROVIDERS: Emergency Provider Nurse Practitioner Family
DX: H61.21 Impacted cerumen, right ear (principal); I25.2 Old myocardial infarction; Z95.5 Presence of coronary angioplasty implant and graft
CPT/HCPCS: 69209; 99212; G0463

== ENCOUNTER 2025-01-29 08:09 | Emergency (ER) | payer MEDICARE, OTHER, SELFPAY ==
--- NOTE | 2025-01-29 08:11 | ED.EAR ---
HPI - Ear Problem General Chief complaint: Ear Stated complaint: R EAR CLOGGED Time Seen by Provider: 01/29/25 08:10 Source: patient Mode of arrival: ambulatory Limitations: no limitations History of Present Illness HPI Narrative: Jaswant is a 74-year-old male patient presenting to the clinic today with complaints of right ear feeling clogged and painful. He reports symptoms started around 2-3 days ago. Denies any known URI symptoms. No known fever, chills, body aches. No recent swimming. Denies any drainage coming from the ear Related Data Home Medications ?Medication ?Instructions ?Recorded ?Confirmed ?Last Taken ?Type clopidogrel 75 mg tablet (Plavix) 75 mg PO DAILY 12/20/22 10/27/24 Unknown History diazepam 2 mg tablet 2 mg PO TID 12/20/22 10/27/24 Unknown History lactobacillus comb no.10 20 20,000 mmu cells PO DAILY 12/20/22 10/27/24 Unknown History billion cell capsule (Probiotic) metoprolol succinate 25 mg 25 mg PO QAM 12/20/22 10/27/24 Unknown History tablet,extended release 24 hr multivitamin 1 tablet PO DAILY 12/20/22 10/27/24 Unknown History rosuvastatin 20 mg tablet 20 mg PO DAILY 12/20/22 10/27/24 Unknown History potassium chloride 20 mEq 20 meq PO DAILY 03/24/24 10/27/24 Unknown History tablet,extended release(part/cryst) tramadol 50 mg tablet 50 mg PO DIRECTED 03/24/24 10/27/24 Unknown History famotidine 20 mg tablet 20 mg PO DAILY 06/25/24 10/27/24 Unknown History Allergies Allergy/AdvReac Type Severity Reaction Status Date / Time No Known Allergies Allergy Verified 01/29/25 08:20 Review of Systems Review of Systems: Pertinent positives per HPI. Patient denies any fever, chills, rash, headache, visual changes, dizziness, cough, runny nose, sore throat, shortness of breath, chest pain, palpitations, nausea, vomiting, diarrhea, constipation, abdominal pain, or any urinary issues. [facility] Past Medical History Medical History Myocardial infarct Surgical History Surgical History History of coronary artery stent placement Social History Social History Smoking status: Never smoker Alcohol intake: never Substance use: never Lack of Transportation: No Lack of Food: Never True Current Housing: I Have Housing Concerned About Future Housing: No Difficulty Paying Gas/Electric Bills: No Difficulty Paying for Meds: No Currently Unemployed: No Education: Bachelor's Degree Difficulty w/ Childcare or Family Care: No Living arrangements: with family Additional living arrangements comments: Spiritual care concerns: No Comments At the time of my signature, I reviewed and agree with the nursing past medical, surgical, social, and family history. There is no relevant family history pertinent to the patient complaint. Exam Narrative: General: Well-developed, well nourished, in no apparent distress Head: Normocephalic, atraumatic Eyes: Pupils equally round and reactive to light bilaterally, EOM intact, sclera and conjunctive clear, no discharge, lids normal Ears: Left TMs intact and clear, right TM intact, bulging, mildly red, left ear canal is ceruminous, right ear canal red and swollen with white exudate, grossly hearing normal. Nose: Nares patent, no discharge, no inflammation, no sinus tenderness. Mouth: Oropharynx without lesions or masses, good dentition, MMM. Neck: Supple, trachea midline, no enlargement of anterior or posterior cervical nodes, no thyroid masses or goiter palpable. Cardio: Regular rate and rhythm, s1 and s2 normal, no murmur appreciated. Resp: Clear to auscultation bilaterally anteriorly and posteriorly, no rhonchi, rales, wheezing or rubs Course Course Emergency Course: Portions of this record may have been created with voice recognition software. Level of Care: Express Care Visit Vital Signs Vital signs: Vital Signs Temperature 36.2 C L 01/29/25 08:15 Pulse Rate 84 01/29/25 08:15 Respiratory Rate 16 01/29/25 08:15 Blood Pressure 137/74 01/29/25 08:15 Pulse Oximetry 97 01/29/25 08:15 Temperature 36.2 C L 01/29/25 08:15 Pulse Rate 84 01/29/25 08:15 Respiratory Rate 16 01/29/25 08:15 Blood Pressure 137/74 01/29/25 08:15 Pulse Oximetry 97 01/29/25 08:15 Vital signs reviewed Medical Decision Making MDM Narrative Medical decision making narrative: At the time of visit patient is resting comfortably on the exam table. Patient appears to be nontoxic. Plan: I suspect patient has right otitis media/externa. Prescription for amoxicillin and ofloxacin was sent to the pharmacy. Supportive measures were discussed with the patient and they voiced understanding discharge instructions and agrees to treatment plan. Return precautions reviewed Differential Diagnosis Differential Diagnosis: Otitis media, otitis externa, eustachian tube dysfunction, cerumen impaction, upper respiratory infection, serous otitis Vital Signs Vital Signs: Vital Signs Temperature 36.2 C L 01/29/25 08:15 Pulse Rate 84 01/29/25 08:15 Respiratory Rate 16 01/29/25 08:15 Blood Pressure 137/74 01/29/25 08:15 Pulse Oximetry 97 01/29/25 08:15 Temperature 36.2 C L 01/29/25 08:15 Pulse Rate 84 01/29/25 08:15 Respiratory Rate 16 01/29/25 08:15 Blood Pressure 137/74 01/29/25 08:15 Pulse Oximetry 97 01/29/25 08:15 Discharge Plan Discharge Clinical Impression: Otitis externa Qualifiers: Otitis externa type: diffuse Chronicity: acute Laterality: right Qualified Code(s): H60.311 - Diffuse otitis externa, right ear Otitis media Qualifiers: Otitis media type: suppurative Chronicity: acute Laterality: right Recurrence: non-recurrent Spontaneous tympanic membrane rupture: without spontaneous rupture Qualified Code(s): H66.001 - Acute suppurative otitis media without spontaneous rupture of ear drum, right ear Patient Disposition: Home Condition: Stable Instructions: Antibiotic Form, How to Use Ear Drops (ED), Ear Infection (ED) Additional Instructions: Take any prescribed medications only as directed-ofloxacin ear drops and amoxicillin Tylenol/motrin as needed for pain May use heating pad to alleviate pain If you get recurrent ear infections it may be warranted to follow up with ENT. Follow up with your PCP in 3-5 days if symptoms persist. Patient Language: Korean Prescriptions: New ofloxacin 0.3 % drops 5 drp otic (ear) BID 7 Days Qty: 5 0RF amoxicillin 875 mg tablet 875 mg PO Q12H 7 Days Qty: 14 0RF No Action tramadol 50 mg tablet 50 mg PO DIRECTED potassium chloride 20 mEq tablet,ER particles/crystals 20 meq PO DAILY famotidine 20 mg Tablet 20 mg PO DAILY multivitamin Tablet 1 tablet PO DAILY clopidogrel [Plavix] 75 mg tablet 75 mg PO DAILY diazepam 2 mg tablet 2 mg PO TID metoprolol succinate 25 mg tablet extended release 24 hr 25 mg PO QAM rosuvastatin 20 mg tablet 20 mg PO DAILY Probiotic 20 billion cell Capsule 20,000 mmu cells PO DAILY Rx Instructions: administer with a meal Follow-up/Referrals: UNKNOWN,DOCTOR [Non-Staff] - Time of Disposition: 08:22 Quality NIHSS Nursing Documentation ED NIHSS nursing documentation: reviewed/agree
[2025-01-29 08:15] VITALS: BP 137/74; PULSE 84; RESP 16; TEMP 36.2; O2SAT 97
== END 2025-01-29 08:25 | disposition home or self-care (01) ==
PROVIDERS: Emergency Provider Nurse Practitioner Family
DX: H60.311 Diffuse otitis externa, right ear (principal); H66.001 Acute suppurative otitis media without spontaneous rupture of ear drum, right ear; I25.2 Old myocardial infarction; Z95.5 Presence of coronary angioplasty implant and graft; Z79.01 Long term (current) use of anticoagulants
CPT/HCPCS: 99213; G0463

== ENCOUNTER 2025-06-14 13:00 | Emergency (ER) | payer MEDICARE, OTHER, SELFPAY ==
[2025-06-14 13:26] VITALS: BP 119/77; PULSE 87; RESP 14; TEMP 36.6; O2SAT 98
--- NOTE | 2025-06-14 14:21 | ED.EAR ---
HPI - Ear Problem General Chief complaint: Ear Stated complaint: L Ear Pain Time Seen by Provider: 06/14/25 14:15 Source: patient, RN notes reviewed and old records reviewed Mode of arrival: ambulatory Limitations: no limitations History of Present Illness HPI Narrative: 75 year old male who presents to [facility] with complaints of left ear discomfort and decreased hearing for the past 2 days.. Patient reports that he has problems with excessive ear wax and has had to have his ears irrigated previously to have wax removed. Patient reports that he put some Debrox in his left ear this morning. Patient reports no fevers chills or any symptoms of URI. MD Complaint: ear pain and decreased hearing Location: left ear Duration: constant Discharge from ear: Reports no Treatment prior to arrival: other (Debrox) Related Data Home Medications ?Medication ?Instructions ?Recorded ?Confirmed ?Last Taken ?Type clopidogrel 75 mg tablet (Plavix) 75 mg PO DAILY 12/20/22 10/27/24 Unknown History diazepam 2 mg tablet 2 mg PO TID 12/20/22 10/27/24 Unknown History lactobacillus comb no.10 20 20,000 mmu cells PO DAILY 12/20/22 10/27/24 Unknown History billion cell capsule (Probiotic) metoprolol succinate 25 mg 25 mg PO QAM 12/20/22 10/27/24 Unknown History tablet,extended release 24 hr multivitamin 1 tablet PO DAILY 12/20/22 10/27/24 Unknown History rosuvastatin 20 mg tablet 20 mg PO DAILY 12/20/22 10/27/24 Unknown History potassium chloride 20 mEq 20 meq PO DAILY 03/24/24 10/27/24 Unknown History tablet,extended release(part/cryst) tramadol 50 mg tablet 50 mg PO DIRECTED 03/24/24 10/27/24 Unknown History famotidine 20 mg tablet 20 mg PO DAILY 06/25/24 10/27/24 Unknown History Allergies Allergy/AdvReac Type Severity Reaction Status Date / Time No Known Allergies Allergy Verified 01/29/25 08:20 Review of Systems Review of Systems: CONSTITUTIONAL: Denies fever, chills, or sweats. EYES: Denies visual changes, redness, or discharge. ENT: Denies rhinorrhea, congestion, sore throat, reports left ear otalgia and decreased hearing CARDIOVASCULAR: Denies chest pain, palpitations, or edema. RESPIRATORY: Denies cough or dyspnea. GASTROINTESTINAL: Denies abdominal pain, nausea, vomiting, or diarrhea. GENITOURINARY: Denies dysuria or hematuria. SKIN: Denies rash or itching. MUSCULOSKELETAL: Denies back pain, joint pain, or myalgia. NEUROLOGIC: Denies headache, numbness, or weakness. PSYCHIATRIC: reports history of anxiety or depression. All systems reviewed & are unremarkable except as noted in HPI and below PMFSH Past Medical History Medical History Myocardial infarct Surgical History Surgical History History of coronary artery stent placement Social History Social History Smoking status: Never smoker Alcohol intake: never Substance use: never Lack of Transportation: No Lack of Food: Never True Current Housing: I Have Housing Concerned About Future Housing: No Difficulty Paying Gas/Electric Bills: No Difficulty Paying for Meds: No Currently Unemployed: No Education: Bachelor's Degree Difficulty w/ Childcare or Family Care: No Living arrangements: with family Additional living arrangements comments: Spiritual care concerns: No Comments At time of signature, agree with nursing past medical, surgical, social and family history. There is no relevant family history pertinent to the presenting complaint Exam Narrative: GENERAL: Well-appearing, well-nourished, and in no acute distress.afebrile HEAD: Normocephalic, atraumatic. EYES: PERRLA and EOMI. ENT: Nares clear, no rhinorrhea or epistaxis. Mucous membranes moist.Left ear impacted with yellow wax TM noted normal after left ear irrigation with warm water and hydrogen peroxide. NECK: Supple. no lymphadenopathy CHEST: Clear to auscultation. No respiratory distress.SAO2 98% on room air HEART: Regular rate and rhythm. No murmur heard. Normal peripheral pulses. ABDOMEN: Soft, nontender, nondistended, normal active bowel sounds. EXTREMITIES: Normal range of motion. No edema. SKIN: Warm, dry, no rash. NEURO: No focal deficits. Alert and oriented x3. Course Course Emergency Course: Patient is aware of diagnosis, understands and agrees to treatment plan.? Anticipatory guidance given.? Patient agrees to follow-up as directed and is aware of reasons to seek care at the emergency department. Portions of this record may have been created with voice recognition software Level of Care: Express Care Visit Vital Signs Vital signs: Vital Signs Temperature 36.6 C 06/14/25 13:26 Pulse Rate 87 06/14/25 13:26 Respiratory Rate 14 06/14/25 13:26 Blood Pressure 119/77 06/14/25 13:26 Pulse Oximetry 98 06/14/25 13:26 Oxygen Delivery Room Air 06/14/25 13:26 Temperature 36.6 C 06/14/25 13:26 Pulse Rate 87 06/14/25 13:26 Respiratory Rate 14 06/14/25 13:26 Blood Pressure 119/77 06/14/25 13:26 Pulse Oximetry 98 06/14/25 13:26 Oxygen Delivery Room Air 06/14/25 13:26 Reviewed Procedures Ear Wax Removal Left Ear: Ear Wax Removal Date: 06/14/25 Ear Wax Removal Time: 14:30 Cerumenolytic Used: 5-10% Sodium Bicarb solution Results: Re-examined: cerumen removed completely TM Examination: TM(s) intact, normal appearance Ear Canal Exam: atraumatic Patient Tolerated Procedure: well Complications: no problems Technique: ear canal irrigated Additional Comments: Moderate amount of yellow wax removed from left ear Medical Decision Making MDM Narrative Medical decision making narrative: Exam findings and imaging show no acute concerns or changes; patient is non-toxic appearing and is in no distress.? Patient is appropriate for outpatient treatment and follow-up Differential Diagnosis Differential Diagnosis: left ear otalgia, decreased hearing left ear, cerumen impaction left ear Medical Records Medical records reviewed: Yes I reviewed the external patient's medical records. Vital Signs Vital Signs: Vital Signs Temperature 36.6 C 06/14/25 13:26 Pulse Rate 87 06/14/25 13:26 Respiratory Rate 14 06/14/25 13:26 Blood Pressure 119/77 06/14/25 13:26 Pulse Oximetry 98 06/14/25 13:26 Oxygen Delivery Room Air 06/14/25 13:26 Temperature 36.6 C 06/14/25 13:26 Pulse Rate 87 06/14/25 13:26 Respiratory Rate 14 06/14/25 13:26 Blood Pressure 119/77 06/14/25 13:26 Pulse Oximetry 98 06/14/25 13:26 Oxygen Delivery Room Air 06/14/25 13:26 reviewed Critical Care Time Critical Care Time Critical Care Time: No Discharge Plan Discharge Clinical Impression: Decreased hearing of left ear Cerumen impaction Qualifiers: Laterality: left Qualified Code(s): H61.22 - Impacted cerumen, left ear Patient Disposition: Home Condition: Stable Instructions: Antibiotic Form, Carbamide Peroxide (Into the ear) Additional Instructions: Increase fluids especially juices and water [id number]-laxytfb cough and cold medicine of your choice for any symptoms Zyrtec or Claritin daily Use Debrox weekly to ears heat to the face 20-30 minutes 4-6 times a day for pain Salt water gargles, throat lozenges or throat sprays as desired Patient Language: Divehi Prescriptions: No Action tramadol 50 mg tablet 50 mg PO DIRECTED potassium chloride 20 mEq tablet,ER particles/crystals 20 meq PO DAILY famotidine 20 mg Tablet 20 mg PO DAILY ofloxacin 0.3 % drops 5 drp otic (ear) BID 7 Days Qty: 5 0RF amoxicillin 875 mg tablet 875 mg PO Q12H 7 Days Qty: 14 0RF multivitamin Tablet 1 tablet PO DAILY clopidogrel [Plavix] 75 mg tablet 75 mg PO DAILY diazepam 2 mg tablet 2 mg PO TID metoprolol succinate 25 mg tablet extended release 24 hr 25 mg PO QAM rosuvastatin 20 mg tablet 20 mg PO DAILY Probiotic 20 billion cell Capsule 20,000 mmu cells PO DAILY Rx Instructions: administer with a meal Follow-up/Referrals: PHYSICIAN,HAUL CANE BRAKEMAN [Primary Care Provider, Internal Medicine] Time of Disposition: 14:52 Quality [place] Coma Scale Eyes: Open Verbal: Oriented and Alert Motor: Follows Commands Ebony Coma Total Score: 15
== END 2025-06-14 15:08 | disposition home or self-care (01) ==
PROVIDERS: Emergency Provider Registered Nurse
DX: H61.22 Impacted cerumen, left ear (principal); I25.2 Old myocardial infarction; Z95.5 Presence of coronary angioplasty implant and graft
CPT/HCPCS: 69209; 99212; G0463

== ENCOUNTER 2025-07-02 08:02 | Emergency (ER) | payer MEDICARE, OTHER, SELFPAY ==
--- NOTE | 2025-07-02 08:08 | ED.EAR ---
HPI - Ear Problem General Chief complaint: Ear Stated complaint: EARS CLOGGED Source: patient Mode of arrival: ambulatory Limitations: no limitations History of Present Illness HPI Narrative: Pt is a 75 y/o male presenting with c/o ears clogged (R>L). Sx began 2 days ago. Tx initiated GRAIN TRIMMER includes OTC ear gtts last night. Reports concurrent allergies. Denies constitutional sx. No known direct sick contacts. No recent travel/swimming. No trauma. No additional complaints. Related Data Home Medications ?Medication ?Instructions ?Recorded ?Confirmed ?Last Taken ?Type clopidogrel 75 mg tablet (Plavix) 75 mg PO DAILY 12/20/22 07/02/25 Unknown History diazepam 2 mg tablet 2 mg PO TID 12/20/22 07/02/25 Unknown History lactobacillus comb no.10 20 20,000 mmu cells PO DAILY 12/20/22 07/02/25 Unknown History billion cell capsule (Probiotic) metoprolol succinate 25 mg 25 mg PO QAM 12/20/22 07/02/25 Unknown History tablet,extended release 24 hr multivitamin 1 tablet PO DAILY 12/20/22 07/02/25 Unknown History rosuvastatin 20 mg tablet 20 mg PO DAILY 12/20/22 07/02/25 Unknown History potassium chloride 20 mEq 20 meq PO DAILY 03/24/24 07/02/25 Unknown History tablet,extended release(part/cryst) tramadol 50 mg tablet 50 mg PO DIRECTED 03/24/24 07/02/25 Unknown History Allergies Allergy/AdvReac Type Severity Reaction Status Date / Time No Known Allergies Allergy Verified 07/02/25 08:10 Review of Systems Review of Systems: CONSTITUTIONAL: Denies body aches, fever, chills, or sweats. EYES: Denies visual changes, redness, or discharge. ENT: Reports bilateral ears feeling clogged right greater than left Denies rhinorrhea, congestion, sore throat CARDIOVASCULAR: Denies chest pain, palpitations, or edema. RESPIRATORY: Denies cough or dyspnea. GASTROINTESTINAL: Denies abdominal pain, nausea, vomiting, or diarrhea. GENITOURINARY: Denies dysuria or hematuria. SKIN: Denies rash, itching, or wounds. MUSCULOSKELETAL: Denies back pain, joint pain, or myalgia. NEUROLOGIC: Denies headache, numbness, tingling, or weakness. PSYCH: Denies depression or anxiety. All systems reviewed & are unremarkable except as noted in HPI and below PMFSH Past Medical History Medical History Myocardial infarct Surgical History Surgical History History of coronary artery stent placement Social History Social History Smoking status: Never smoker Alcohol intake: never Substance use: never Lack of Transportation: No Lack of Food: Never True Current Housing: I Have Housing Concerned About Future Housing: No Difficulty Paying Gas/Electric Bills: No Difficulty Paying for Meds: No Currently Unemployed: No Education: Bachelor's Degree Difficulty w/ Childcare or Family Care: No Living arrangements: with family Additional living arrangements comments: Spiritual care concerns: No Exam Narrative: GENERAL: Well-appearing, well-nourished, and in no acute distress. HEAD: Normocephalic, atraumatic. EYES: EOMI. No redness or drainage. Conjunctivae normal. ENT: Mucous membranes pink and moist. Nares clear. No rhinorrhea. TMs normal bilaterally. Throat normal. Uvula midline. Scant amount of cheesy-like material adherent to edi. auditory canal almanza with mild edema without erythema. No impaction of cerumen. NO mastoid tenderness. NECK: Normal AROM. Supple. CHEST: No respiratory distress. EXTREMITIES: Normal range of motion. SKIN: Warm, dry, no rash. Capillary refill normal. Normal skin turgor. NEURO: No focal deficits. Alert and oriented x3. Gait steady. PSYCH: Normal affect. No signs of depression or anxiety. Course Course Emergency Course: exam findings could be 2/2 instilling ear gtts last night--Will cover for external otitis given findings on exam today----aware of need to f/u with PCP. Discussed elevated blood pressure readings with patient and advised daily BP monitoring and f/u with PCP if persisting. Level of Care: Express Care Visit Vital Signs Vital signs: Vital Signs Temperature 97 F L 07/02/25 08:12 Pulse Rate 99 07/02/25 08:12 Respiratory Rate 16 07/02/25 08:12 Blood Pressure 146/82 H 07/02/25 08:12 Pulse Oximetry 100 07/02/25 08:12 Temperature 97 F L 07/02/25 08:12 Pulse Rate 99 07/02/25 08:12 Respiratory Rate 16 07/02/25 08:12 Blood Pressure 146/82 H 07/02/25 08:12 Pulse Oximetry 100 07/02/25 08:12 Medical Decision Making Vital Signs Vital Signs: Vital Signs Temperature 97 F L 07/02/25 08:12 Pulse Rate 99 07/02/25 08:12 Respiratory Rate 16 07/02/25 08:12 Blood Pressure 146/82 H 07/02/25 08:12 Pulse Oximetry 100 07/02/25 08:12 Temperature 97 F L 07/02/25 08:12 Pulse Rate 99 07/02/25 08:12 Respiratory Rate 16 07/02/25 08:12 Blood Pressure 146/82 H 07/02/25 08:12 Pulse Oximetry 100 07/02/25 08:12 Discharge Plan Discharge Clinical Impression: Decreased hearing of both ears Otitis externa Qualifiers: Otitis externa type: unspecified type Chronicity: acute Laterality: bilateral Qualified Code(s): H60.503 - Unspecified acute noninfective otitis externa, bilateral HTN (hypertension) Qualifiers: Hypertension type: unspecified Qualified Code(s): I10 - Essential (primary) hypertension Patient Disposition: Home Condition: Stable Instructions: Jhonathan's Ear (ED) Additional Instructions: Go straight to ER should your symptoms become worse or should any new symptoms develop Patient Language: Fijian Prescriptions: New ofloxacin 0.3 % drops 5 drp EACH EAR BID 7 Days Qty: 10 0RF No Action tramadol 50 mg tablet 50 mg PO DIRECTED potassium chloride 20 mEq tablet,ER particles/crystals 20 meq PO DAILY ofloxacin 0.3 % drops 5 drp otic (ear) BID 7 Days Qty: 5 0RF multivitamin Tablet 1 tablet PO DAILY clopidogrel [Plavix] 75 mg tablet 75 mg PO DAILY diazepam 2 mg tablet 2 mg PO TID metoprolol succinate 25 mg tablet extended release 24 hr 25 mg PO QAM rosuvastatin 20 mg tablet 20 mg PO DAILY Probiotic 20 billion cell Capsule 20,000 mmu cells PO DAILY Rx Instructions: administer with a meal Follow-up/Referrals: Davian,Cameron [Other] - 07/03/25 Time of Disposition: 08:14
[2025-07-02 08:12] VITALS: BP 146/82; PULSE 99; RESP 16; TEMP 36.1; O2SAT 100
== END 2025-07-02 08:25 | disposition home or self-care (01) ==
PROVIDERS: Emergency Provider Registered Nurse
DX: H91.93 Unspecified hearing loss, bilateral (principal); H60.503 Unspecified acute noninfective otitis externa, bilateral; I10 Essential (primary) hypertension; I25.2 Old myocardial infarction; Z95.5 Presence of coronary angioplasty implant and graft; Z79.01 Long term (current) use of anticoagulants
CPT/HCPCS: 99213; G0463

== ENCOUNTER 2025-09-12 09:30 | Emergency (ER) | payer MEDICARE, OTHER, SELFPAY ==
[2025-09-12 09:44] VITALS: BP 136/79; PULSE 87; RESP 16; TEMP 36.3; O2SAT 99
--- NOTE | 2025-09-12 09:52 | ED_ITS ---
HPI - Wound/Laceration General Chief Complaint: Wound/Laceration Stated Complaint: stitches removal Time Seen by Provider: 09/12/25 09:50 Source: patient Mode of arrival: ambulatory Limitations: no limitations History of Present Illness HPI narrative: Jaswant is a 75-year-old male patient presenting to the clinic today with request for suture removal. He reports he had a procedure done 48 days ago and had the sutures removed however they missed 1 suture in his mid low back. Had a basal cell removed 48 days ago. Had appointment with his doctor but they canceled. Denies any other concerns at this time. No redness, drainage, or pain from the area Related Data Home Medications ?Medication ?Instructions ?Recorded ?Confirmed ?Last Taken ?Type clopidogrel 75 mg tablet (Plavix) 75 mg PO DAILY 12/2007/02/25 Unknown History diazepam 2 mg tablet 2 mg PO TID 12/20/22 5 Unknown History lactobacillus comb no.10 20 20,000 mmu cells PO DAILY 12/20/22 07/02/25 Unknown History billion cell capsule (Probiotic) metoprolol succinate 25 mg 25 mg PO QAM 12/20/2207/02 Unknown History tablet,extended release 24 hr multivitamin 1 tablet PO DAILY 12/20/22 0 07/02/25 Unknown History rosuvastatin 20 mg tablet 20 mg PO DAILY 12/20/2206/16 Unknown History potassium chloride 20 mEq 20 meq PO DAILY 03/24/24 Unknown History tablet,extended release(part/cryst) tramadol 50 mg tablet 50 mg PO DIRECTED 4 07/02/25 Unknown History tramadol 100 mg tablet,extended mg PO 09/12/25 Unknow n History release 24 hr Allergies Allergy/AdvReac Type Severity Reaction Status Date / Time No Known Allergies Allergy Verified 09/12/25 09:39 Review of Systems Review of Systems: Pertinent positives per HPI. Patient denies any fever, chills, rash, headache, visual changes, dizziness, cough, runny nose, sore throat, shortness of breath, chest pain, palpitations, nausea, vomiting, diarrhea, constipation, abdominal pain, or any urinary issues. [facility] Past Medical History Medical History Myocardial infarct Surgical History Surgical History History of coronary artery stent placement Social History Social History Smoking status: Never smoker Alcohol intake: never Substance use: never Lack of Transportation: No Lack of Food: Never True Current Housing: I Have Housing Concerned About Future Housing: No Difficulty Paying Gas/Electric Bills: No Difficulty Paying for Meds: No Currently Unemployed: No Education: Bachelor's Degree Difficulty w/ Childcare or Family Care: No Living arrangements: with family Additional living arrangements comments: Spiritual care concerns: No Comments At the time of my signature, I reviewed and agree with the nursing past medical, surgical, social, and family history. There is no relevant family history pertinent to the patient complaint. Exam Narrative: General: Well-developed, well nourished, in no apparent distress Head: Normocephalic, atraumatic. Cardio: Regular rate and rhythm, s1 and s2 normal, no murmur appreciated. Resp: Clear to auscultation bilaterally, no rhonchi, rales, wheezing or rubs. Integumentary: [place], warm, and dry, intact without lesion, 1 suture to the low mid back-removed using iris scissors and forceps. Course Course Emergency Course: Portions of this record may have been created with voice recognition software. Level of Care: Express Care Visit Vital Signs Vital signs: Vital Signs Temperature 36.3 C L 09/12/25 09:44 Pulse Rate 87 09/12/25 09:44 Respiratory Rate 16 09/12/25 09:44 Blood Pressure 136/79 09/12/25 09:44 Pulse Oximetry 99 09/12/25 09:44 Temperature 36.3 C L 09/12/25 09:44 Pulse Rate 87 09/12/25 09:44 Respiratory Rate 16 09/12/25 09:44 Blood Pressure 136/79 09/12/25 09:44 Pulse Oximetry 99 09/12/25 09:44 Vital signs reviewed MDM - Wound/Laceration MDM Narrative Medical decision making narrative: At the time of visit patient is resting comfortably on the exam table. Patient appears to be nontoxic. Request for suture removal. He reports he had a procedure done 48 days ago and had the sutures removed however they missed 1 suture in his mid low back. Had a basal cell removed 48 days ago. Had appointment with his doctor but they canceled. Denies any other concerns at this time. No redness, drainage, or pain from the area. Plan: Encounter for suture removal. 1 suture was removed in the clinic today. Supportive measures were discussed with the patient and they voiced understanding discharge instructions and agrees to treatment plan. Return precautions reviewed Differential Diagnosis Differential diagnosis: Likely other (Suture removal, cellulitis, skin infection) Discharge Plan Discharge Clinical Impression: Encounter for removal of sutures Patient Disposition: Home Condition: Stable Instructions: Antibiotic Form, Stitches Removal (ED) Additional Instructions: 1 suture was removed in the clinic today. Keep area clean and dry Follow-up with your primary care doctor as needed Patient Language: Pashto Prescriptions: No Action tramadol 50 mg tablet 50 mg PO DIRECTED potassium chloride 20 mEq tablet,ER particles/crystals 20 meq PO DAILY tramadol 100 mg tablet extended release 24 hr PO multivitamin Tablet 1 tablet PO DAILY clopidogrel [Plavix] 75 mg tablet 75 mg PO DAILY diazepam 2 mg tablet 2 mg PO TID metoprolol succinate 25 mg tablet extended release 24 hr 25 mg PO QAM rosuvastatin 20 mg tablet 20 mg PO DAILY Probiotic 20 billion cell Capsule 20,000 mmu cells PO DAILY Rx Instructions: administer with a meal Follow-up/Referrals: PHYSICIAN,CUT OUT AND MARKING MACHINE OPERATOR [Primary Care Provider, Internal Medicine] Time of Disposition: 09:53 Quality NIHSS Nursing Documentation ED NIHSS nursing documentation: reviewed/agree
== END 2025-09-12 09:55 | disposition home or self-care (01) ==
PROVIDERS: Emergency Provider Nurse Practitioner Family
DX: Z48.02 Encounter for removal of sutures (principal); I25.2 Old myocardial infarction; Z95.5 Presence of coronary angioplasty implant and graft
CPT/HCPCS: 99211; G0463